=== PATIENT | male | born 1935 | race African-American/Black ===

== ENCOUNTER 2018-08-07 22:34 | Inpatient (IN) | payer OTHER ==
[~2018-08-07] VITALS: Ht 170.2 cm; Wt 61.3 kg
[~2018-08-07 22:34] MED LIST: ETOMIDATE 2MG/ML 10ML VIAL IV ONE; SODIUM CHLORIDE 0.9% 10ML VIAL ONE; VECURONIUM BROMIDE 10 MG/VIAL IV ONE
[2018-08-07] MEDS ORDERED: ONDANSETRON HCL 4MG/2ML INJ IV STA (23:19)
[2018-08-07] MEDS ORDERED: SODIUM CHLORIDE 0.9% 1,000 ML IV ONE (23:19)
[2018-08-07] MEDS ORDERED: SODIUM CHLORIDE 0.9% 1000ML BAG (SEPSIS BOLUS) IV ONE (23:30)
[2018-08-07] MEDS ORDERED: VANCOMYCIN 1 G PREMIX 200 ML IV ONE (23:30)
[2018-08-07] MEDS ORDERED: PIPERACILLIN/TAZ 3.375G PREMIX 50 ML IV ONE (23:30)
[2018-08-07] MEDS ORDERED: NALOXONE HCL 1 MG/ML 2ML VIAL ONE (23:40)
[2018-08-07] MEDS ORDERED: ETOMIDATE 2MG/ML 10ML VIAL IV ONE (23:45)
[2018-08-07] MEDS ORDERED: VECURONIUM BROMIDE 10 MG/VIAL IV ONE (23:45)
[2018-08-07] MEDS ORDERED: PROPOFOL 10MG/ML 100ML 100 ML IV ONE (23:45)
[2018-08-08] VITALS (35 sets, daily range): BP systolic 84–127; BP diastolic 46–80
[2018-08-08] MEDS ORDERED: NOREPINEPHRINE 4 MG in DEXT 5% WATER 250 ML IV STA (00:08)
[2018-08-08 00:36] LABS: BG BASE EXCESS 3.1 mmol/L (-2.0-2.0); BG CARBOXYHEMOGLOBIN 1.7 % (0.5-1.5); BG DEOXYHEMOGLOBIN 1.1 % (0.0-5.0); BG FRACTION INSPIRED OXYGEN 50; BG HCO3 ACT 30.7 mmol/L (22.0-26.0); BG METHEMOGLOBIN 0.4 % (0.0-1.5); BG OXYGEN SATURATION 98.9 % (92.0-98.5); BG OXYHEMOGLOBIN 96.8 % (94.0-97.0); BG PCO2 59.5 mmHg (35.0-45.0); BG PH 7.331 (7.350-7.450); BG PO2 156.7 mmHg (75.0-100.0); BG SAMPLE SITE RIGHT RADIAL; BG TIDAL VOLUME(mL) 450 mL; BG TOTAL HEMOGLOBIN 15.2 g/dL (12.0-18.0); BG VENT MODE VENT - A/C; BG VENT RATE 14 set
[2018-08-08 00:56] LABS: HEMATOCRIT. 42.8 % (42.0-52.0); HEMOGLOBIN. 14.4 g/dL (14.0-18.0); MEAN CORPUSCULAR HEMOGLOBIN 30.2 pg (28.0-32.0); MEAN CORPUSCULAR VOLUME 89.8 fL (80.0-94.0); MEAN PLATELET VOLUME 9.4 fl (7.4-10.4); PLATELET 203 x1000/uL (130-400); RED BLOOD CELL COUNT 4.76 mill/uL (4.7-6.1); RED CELL DISTRIBUTION WIDTH 15.6 % (11.6-14.6)
[2018-08-08 01:03] LABS: CHLORIDE 103 mEq/L (98-107)
[2018-08-08 01:06] LABS: ETHANOL BLOOD < 10 mg/dL; INR 1.5; PROTHROMBIN TIME 14.7 sec (9.1-11.1)
[2018-08-08 01:14] LABS: PLATELET ESTIMATE NORMAL
[2018-08-08 01:27] LABS: CLARITY URINE CLOUDY (CLEAR); COLOR URINE DARK YELLOW (YELLOW); KETONES URINE TRACE (NEGATIVE); LEUKOCYTE ESTERASE URINE NEGATIVE (NEGATIVE); NITRITE URINE NEGATIVE (NEGATIVE); OCCULT BLOOD URINE TRACE (NEGATIVE); PROTEIN URINE 2+ (NEGATIVE); SPECIFIC GRAVITY URINE 1.018 (1.005-1.030)
[2018-08-08] MEDS ORDERED: NOREPINEPHRINE 4MG/250ML PMX 250 ML IV PRN (01:30)
[2018-08-08 01:36] LABS: *AMPHETAMINES SCREEN URINE NEGATIVE (NEGATIVE); *BARBITURATES SCREEN URINE NEGATIVE (NEGATIVE); *BENZODIAZEPINES SCREEN URINE NEGATIVE (NEGATIVE); *COCAINE SCREEN URINE NEGATIVE (NEGATIVE)
[2018-08-08 01:38] LABS: CANNABINOID URINE SCREEN NEGATIVE (NEGATIVE); METHADONE URINE SCREEN NEGATIVE (NEGATIVE); OPIATES URINE SCREEN NEGATIVE (NEGATIVE); PHENCYCLIDINE URINE SCREEN NEGATIVE (NEGATIVE)
[2018-08-08] MEDS ORDERED: DIGOXIN 500MCG/2ML AMP IV ONE (05:00)
[2018-08-08] MEDS ORDERED: CLONIDINE 0.1MG TABLET PO PRN (07:45)
[2018-08-08] MEDS: SODIUM CHLORIDE 0.45% 1,000 ML IV SCH (07:45)
[2018-08-08] MEDS ORDERED: ENOXAPARIN 40MG/0.4ML SYR SUBCUT SCH (07:45)
[2018-08-08] MEDS ORDERED: ACETAMINOPHEN 650MG SUPP PR PRN (07:45)
[2018-08-08] MEDS ORDERED: ONDANSETRON HCL 4MG/2ML INJ IV PRN (07:45)
[2018-08-08] MEDS ORDERED: AMIODARONE HCL 150 MG in DEXT 5% WATER 100 ML IV SCH (08:00)
[2018-08-08] MEDS ORDERED: PANTOPRAZOLE SODIUM 40 MG/VIAL IV SCH (08:15)
[2018-08-08] MEDS ORDERED: FENTANYL CITRATE/PF 500 MCG in SODIUM CHLORIDE 0.9% 40 ML IV SCH (08:15)
[2018-08-08] MEDS ORDERED: ENOXAPARIN 60MG/0.6ML SYR SUBCUT NR (08:15)
[2018-08-08] MEDS ORDERED: DILTIAZEM HCL 125 MG in DEXT 5% WATER 100 ML IV SCH (08:15)
[2018-08-08] MEDS: FENTANYL CITRATE/PF 500 MCG in SODIUM CHLORIDE 0.9% 40 ML IV SCH ×2 (08:58→16:08)
[2018-08-08] MEDS: DILTIAZEM HCL 125 MG in DEXT 5% WATER 100 ML IV SCH ×2 (08:58→16:09)
[2018-08-08 09:33] LABS: CREATINE KINASE 372 IU/L (39-308)
[2018-08-08 12:30] LABS: FOLIC ACID (FOLATE) SERUM 17.6 ng/mL (>5.38)
[2018-08-08 12:41] LABS: HEPATITIS B SURFACE ANTIGEN NEGATIVE
[2018-08-08] MEDS ORDERED: PROPOFOL 10MG/ML 100ML 100 ML IV PRN (12:45)
[2018-08-08] MEDS ORDERED: IPRATROPIUM BROMIDE (0.02%) 0.5MG/2.5ML NEB HHN SCH (13:00)
[2018-08-08 13:11] LABS: HEPATITIS A AB IGM NEGATIVE (NEGATIVE)
[2018-08-08] MEDS ORDERED: PHENYLEPHRINE 40 MG in DEXT 5% WATER 246 ML IV PRN ×2 (13:15→21:45)
[2018-08-08 14:04] LABS: T4 FREE 1.4 ng/dL (0.76-1.46)
[2018-08-08] MEDS ORDERED: IPRATROPIUM/ALBUTEROL 0.5-3(2.5)MG/3ML NEB HHN SCH (16:00)
[2018-08-08] MEDS ORDERED: ENOXAPARIN 60MG/0.6ML SYR SUBCUT SCH (16:30)
[2018-08-08] MEDS: PIPERACILLIN/TAZ 3.375G PREMIX 50 ML IV SCH (17:30)
[2018-08-08] MEDS ORDERED: SODIUM CHLORIDE 0.9% 1,000 ML IV NR (18:35)
[2018-08-08] MEDS: IPRATROPIUM BROMIDE (0.02%) 0.5MG/2.5ML NEB HHN SCH (20:08)
[2018-08-08] MEDS: LORAZEPAM 2MG/ML CPJ IV PRN (22:34)
[2018-08-08] MEDS ORDERED: VANCOMYCIN 750 MG PREMIX 150 ML IV SCH (23:00)
[2018-08-09] VITALS (96 sets, daily range): BP systolic 83–146; BP diastolic 45–92
[2018-08-09] MEDS: IPRATROPIUM BROMIDE (0.02%) 0.5MG/2.5ML NEB HHN SCH ×6 (00:03→20:25)
[2018-08-09] MEDS: DILTIAZEM HCL 125 MG in DEXT 5% WATER 100 ML IV SCH ×2 (00:57→11:25)
[2018-08-09] MEDS: PIPERACILLIN/TAZ 3.375G PREMIX 50 ML IV SCH ×4 (00:57→23:41)
[2018-08-09] MEDS: SODIUM CHLORIDE 0.45% 1,000 ML IV SCH (01:44)
[2018-08-09 06:49] LABS: INR 1.4
[2018-08-09 06:54] LABS: PHOSPHORUS 3.2 mg/dL (2.5-4.9)
[2018-08-09 06:57] LABS: T4 FREE 1.55 ng/dL (0.76-1.46)
[2018-08-09 07:05] LABS: HEMATOCRIT. 46.2 % (42.0-52.0); HEMOGLOBIN. 14.3 g/dL (14.0-18.0); MEAN CORPUSCULAR HEMOGLOBIN 27.8 pg (28.0-32.0); MEAN CORPUSCULAR VOLUME 89.4 fL (80.0-94.0); MEAN PLATELET VOLUME 8.9 fl (7.4-10.4); PLATELET 123 x1000/uL (130-400); RED BLOOD CELL COUNT 5.17 mill/uL (4.7-6.1); RED CELL DISTRIBUTION WIDTH 15.4 % (11.6-14.6)
[2018-08-09 08:13] LABS: NUCLEATED RED BLOOD CELLS 1 /100 WBC
[2018-08-09 08:14] LABS: PLATELET ESTIMATE SLIGHTLY DECREASED
[2018-08-09 08:52] LABS: BG BASE EXCESS 0.5 mmol/L (-2.0-2.0); BG CARBOXYHEMOGLOBIN 1.1 % (0.5-1.5); BG DEOXYHEMOGLOBIN 14.1 % (0.0-5.0); BG FRACTION INSPIRED OXYGEN 50; BG HCO3 ACT 30.5 mmol/L (22.0-26.0); BG METHEMOGLOBIN 0.1 % (0.0-1.5); BG OXYGEN SATURATION 85.7 % (92.0-98.5); BG OXYHEMOGLOBIN 84.7 % (94.0-97.0); BG PCO2 75.8 mmHg (35.0-45.0); BG PH 7.223 (7.350-7.450); BG PO2 59.1 mmHg (75.0-100.0); BG PRESSURE SUPPORT 10; BG SAMPLE SITE RIGHT BRACHIAL; BG TOTAL HEMOGLOBIN 14.9 g/dL (12.0-18.0); BG VENT MODE VENT - CPAP
[2018-08-09] MEDS ORDERED: DIGOXIN 500MCG/2ML AMP IV NR (11:00)
[2018-08-09] MEDS: ENOXAPARIN 80MG/0.8ML SYR SUBCUT SCH (11:25)
[2018-08-09] MEDS: LORAZEPAM 2MG/ML CPJ IV PRN (11:47)
[2018-08-09] MEDS ORDERED: SIMV40TA5 PO (16:59)
[2018-08-09] MEDS ORDERED: HYDR12.529 PO (16:59)
[2018-08-09] MEDS ORDERED: BUDE6.9H INH (16:59)
[2018-08-09] MEDS ORDERED: ASPI-1160 PO (16:59)
[2018-08-09] MEDS ORDERED: NIFE60TA83 PO (16:59)
[2018-08-09] MEDS ORDERED: ATEN-42 PO (16:59)
[2018-08-09 19:07] LABS: ANTI-NUCLEAR ANTIBODIES DIRECT Negative (Negative)
[2018-08-09] MEDS: VANCOMYCIN 1 G PREMIX 200 ML IV SCH (22:20)
[2018-08-10] VITALS (70 sets, daily range): BP systolic 105–160; BP diastolic 57–81
[2018-08-10] MEDS: IPRATROPIUM BROMIDE (0.02%) 0.5MG/2.5ML NEB HHN SCH ×6 (00:20→20:41)
[2018-08-10 04:49] LABS: HEMATOCRIT. 43.7 % (42.0-52.0); HEMOGLOBIN. 13.7 g/dL (14.0-18.0); MEAN CORPUSCULAR HEMOGLOBIN 28.2 pg (28.0-32.0); MEAN CORPUSCULAR VOLUME 90.1 fL (80.0-94.0); MEAN PLATELET VOLUME 8.5 fl (7.4-10.4); PLATELET 113 x1000/uL (130-400); RED BLOOD CELL COUNT 4.85 mill/uL (4.7-6.1); RED CELL DISTRIBUTION WIDTH 15.6 % (11.6-14.6)
[2018-08-10 05:02] LABS: CHLORIDE 109 mEq/L (98-107)
[2018-08-10 05:14] LABS: PHOSPHORUS 2.3 mg/dL (2.5-4.9)
[2018-08-10] MEDS: PIPERACILLIN/TAZ 3.375G PREMIX 50 ML IV SCH ×2 (05:16→12:01)
[2018-08-10 05:20] LABS: COMPLEMENT C3 79 mg/dL (82-167)
[2018-08-10 07:37] LABS: PLATELET ESTIMATE DECREASED
[2018-08-10 08:19] LABS: HIV SCREEN 4G Non Reactive (Non Reactive)
[2018-08-10] MEDS: LANSOPRAZOLE 30MG DR CAPSULE GT SCH (08:59)
[2018-08-10] MEDS: SODIUM CHLORIDE 0.45% 1,000 ML IV SCH (09:00)
[2018-08-10] MEDS ORDERED: PANTOPRAZOLE 40MG DR TABLET PO ONE (09:00)
[2018-08-10 09:24] LABS: BG CARBOXYHEMOGLOBIN 1.4 % (0.5-1.5); BG DEOXYHEMOGLOBIN 5.6 % (0.0-5.0); BG HCO3 ACT 29.2 mmol/L (22.0-26.0); BG METHEMOGLOBIN 0.2 % (0.0-1.5); BG OXYGEN SATURATION 94.3 % (92.0-98.5); BG OXYHEMOGLOBIN 92.8 % (94.0-97.0); BG PCO2 50.9 mmHg (35.0-45.0); BG PH 7.376 (7.350-7.450); BG PO2 70.2 mmHg (75.0-100.0); BG SAMPLE SITE RIGHT BRACHIAL; BG TIDAL VOLUME(mL) 500 mL; BG TOTAL HEMOGLOBIN 14.3 g/dL (12.0-18.0); BG VENT MODE VENT - A/C; BG VENT RATE 16 set
[2018-08-10] MEDS ORDERED: DILTIAZEM HCL 125 MG in DEXT 5% WATER 100 ML IV PRN (10:00)
[2018-08-10] MEDS: ENOXAPARIN 80MG/0.8ML SYR SUBCUT SCH (11:04)
[2018-08-10] MEDS ORDERED: POTASSIUM PHOS,M-BASIC-D-BASIC 20 MMOL in DEXT 5% WATER 243.3333 ML IV NR (11:30)
[2018-08-10] MEDS: DILTIAZEM HCL 60MG TABLET PO SCH ×2 (13:41→21:55)
[2018-08-10] MEDS ORDERED: FUROSEMIDE 40MG/4ML VIAL IVP NR (15:15)
[2018-08-10] MEDS: PIPERACILLIN/TAZ 2.25G PREMIX 50 ML IV SCH (17:24)
[2018-08-10] MEDS: VANCOMYCIN 1 G PREMIX 200 ML IV SCH (20:23)
[2018-08-10] MEDS: LORAZEPAM 2MG/ML CPJ IV PRN (20:24)
[2018-08-11] VITALS (42 sets, daily range): BP systolic 102–142; BP diastolic 50–117
[2018-08-11] MEDS: PIPERACILLIN/TAZ 2.25G PREMIX 50 ML IV SCH ×5 (00:45→23:17)
[2018-08-11] MEDS: IPRATROPIUM BROMIDE (0.02%) 0.5MG/2.5ML NEB HHN SCH ×6 (00:49→20:17)
[2018-08-11] MEDS: DILTIAZEM HCL 60MG TABLET PO SCH ×3 (05:05→21:17)
[2018-08-11] MEDS: LANSOPRAZOLE 30MG DR CAPSULE GT SCH (05:05)
[2018-08-11 05:32] LABS: HEMATOCRIT. 47.5 % (42.0-52.0); HEMOGLOBIN. 14.9 g/dL (14.0-18.0); MEAN CORPUSCULAR HEMOGLOBIN 28.2 pg (28.0-32.0); MEAN CORPUSCULAR VOLUME 89.8 fL (80.0-94.0); MEAN PLATELET VOLUME 9.2 fl (7.4-10.4); PLATELET 114 x1000/uL (130-400); RED BLOOD CELL COUNT 5.29 mill/uL (4.7-6.1); RED CELL DISTRIBUTION WIDTH 15.3 % (11.6-14.6)
[2018-08-11 08:23] LABS: BG BASE EXCESS 10.5 mmol/L (-2.0-2.0); BG CARBOXYHEMOGLOBIN 1.1 % (0.5-1.5); BG DEOXYHEMOGLOBIN 3.6 % (0.0-5.0); BG FRACTION INSPIRED OXYGEN 70; BG HCO3 ACT 37.2 mmol/L (22.0-26.0); BG METHEMOGLOBIN 0.5 % (0.0-1.5); BG OXYGEN SATURATION 96.3 % (92.0-98.5); BG OXYHEMOGLOBIN 94.8 % (94.0-97.0); BG PCO2 57.4 mmHg (35.0-45.0); BG PH 7.429 (7.350-7.450); BG PO2 83.8 mmHg (75.0-100.0); BG SAMPLE SITE RIGHT RADIAL; BG TIDAL VOLUME(mL) 500 mL; BG TOTAL HEMOGLOBIN 14.6 g/dL (12.0-18.0); BG VENT MODE VENT - A/C; BG VENT RATE 16 set
[2018-08-11 10:23] LABS: PLATELET ESTIMATE SLIGHTLY DECREASED
[2018-08-11] MEDS: ENOXAPARIN 80MG/0.8ML SYR SUBCUT SCH (11:45)
[2018-08-11] MEDS: LORAZEPAM 2MG/ML CPJ IV PRN ×3 (12:34→22:52)
[2018-08-11] MEDS ORDERED: DEXTROSE 50% WATER 50ML SYRINGE IV PRN (13:00)
[2018-08-11] MEDS: BLOOD SUGAR DIAGNOSTIC STRIP TEST SCH ×3 (13:00→23:15)
[2018-08-11] MEDS: INSULIN LISPRO 100 UNITS/ML SUBCUT SCH ×3 (13:00→23:17)
[2018-08-11] MEDS: METHYLPREDNISOLONE SOD SUCC 40 MG/ML VIAL IV SCH (18:26)
[2018-08-11] MEDS: VANCOMYCIN 1 G PREMIX 200 ML IV SCH (20:42)
[2018-08-11] MEDS ORDERED: ACETAMINOPHEN 325MG TABLET PO PRN (21:00)
[2018-08-12] VITALS (71 sets, daily range): BP systolic 110–145; BP diastolic 53–102
[2018-08-12] MEDS: IPRATROPIUM BROMIDE (0.02%) 0.5MG/2.5ML NEB HHN SCH ×7 (00:32→23:44)
[2018-08-12] MEDS: METHYLPREDNISOLONE SOD SUCC 40 MG/ML VIAL IV SCH ×3 (02:39→18:24)
[2018-08-12 05:21] LABS: HEMATOCRIT. 42.9 % (42.0-52.0); HEMOGLOBIN. 13.4 g/dL (14.0-18.0); MEAN CORPUSCULAR VOLUME 89.6 fL (80.0-94.0); PLATELET 109 x1000/uL (130-400); RED BLOOD CELL COUNT 4.79 mill/uL (4.7-6.1)
[2018-08-12 05:23] LABS: CHLORIDE 106 mEq/L (98-107)
[2018-08-12] MEDS: BLOOD SUGAR DIAGNOSTIC STRIP TEST SCH ×3 (05:43→23:38)
[2018-08-12] MEDS: DILTIAZEM HCL 60MG TABLET PO SCH ×3 (05:44→21:14)
[2018-08-12] MEDS: LANSOPRAZOLE 30MG DR CAPSULE GT SCH (05:44)
[2018-08-12] MEDS: INSULIN LISPRO 100 UNITS/ML SUBCUT SCH ×3 (05:44→23:39)
[2018-08-12] MEDS: PIPERACILLIN/TAZ 2.25G PREMIX 50 ML IV SCH ×4 (05:45→23:38)
[2018-08-12] MEDS: LORAZEPAM 2MG/ML CPJ IV PRN ×3 (05:46→19:36)
[2018-08-12 08:22] LABS: BG BASE EXCESS 9.8 mmol/L (-2.0-2.0); BG DEOXYHEMOGLOBIN 4.5 % (0.0-5.0); BG FRACTION INSPIRED OXYGEN 70; BG HCO3 ACT 36.2 mmol/L (22.0-26.0); BG METHEMOGLOBIN 0.1 % (0.0-1.5); BG OXYGEN SATURATION 95.4 % (92.0-98.5); BG OXYHEMOGLOBIN 94.4 % (94.0-97.0); BG PCO2 55.6 mmHg (35.0-45.0); BG PH 7.432 (7.350-7.450); BG PO2 78.8 mmHg (75.0-100.0); BG SAMPLE SITE RIGHT RADIAL; BG TIDAL VOLUME(mL) 500 mL; BG TOTAL HEMOGLOBIN 14.5 g/dL (12.0-18.0); BG VENT MODE VENT - A/C; BG VENT RATE 16 set
[2018-08-12] MEDS: ENOXAPARIN 80MG/0.8ML SYR SUBCUT SCH (11:31)
[2018-08-12] MEDS ORDERED: DEXTROSE 50% WATER 50ML SYRINGE IV PRN (14:30)
[2018-08-12] MEDS: VANCOMYCIN 1 G PREMIX 200 ML IV SCH (16:00)
[2018-08-12 16:01] LABS: PLATELET ESTIMATE SLIGHTLY DECREASED
[2018-08-12] MEDS ORDERED: BLOOD SUGAR DIAGNOSTIC STRIP TEST SCH (16:30)
[2018-08-12] MEDS ORDERED: INSULIN LISPRO 100 UNITS/ML SUBCUT SCH (17:00)
[2018-08-12] MEDS: SODIUM CHLORIDE 0.45% 1,000 ML IV SCH (18:24)
[2018-08-12] MEDS ORDERED: INSULIN GLARGINE UD 100 UNITS/ML SYR SUBCUT SCH (22:00)
[2018-08-12] MEDS ORDERED: IOHEXOL-350 100 ML BOTTLE ONE (22:59)
[2018-08-13] VITALS (48 sets, daily range): BP systolic 109–155; BP diastolic 67–86
[2018-08-13] MEDS ORDERED: DEXTROSE 50% WATER 50ML SYRINGE IV PRN
[2018-08-13] MEDS: METHYLPREDNISOLONE SOD SUCC 40 MG/ML VIAL IV SCH ×3 (01:36→18:34)
[2018-08-13] MEDS: IPRATROPIUM BROMIDE (0.02%) 0.5MG/2.5ML NEB HHN SCH ×5 (04:18→20:25)
[2018-08-13] MEDS: BLOOD SUGAR DIAGNOSTIC STRIP TEST SCH ×4 (05:39→23:10)
[2018-08-13] MEDS: SODIUM CHLORIDE 0.45% 1,000 ML IV SCH (05:39)
[2018-08-13] MEDS: DILTIAZEM HCL 60MG TABLET PO SCH ×3 (05:42→22:06)
[2018-08-13] MEDS: LANSOPRAZOLE 30MG DR CAPSULE GT SCH (05:42)
[2018-08-13] MEDS: PIPERACILLIN/TAZ 2.25G PREMIX 50 ML IV SCH ×4 (05:42→23:07)
[2018-08-13 05:49] LABS: HEMATOCRIT. 43.5 % (42.0-52.0); HEMOGLOBIN. 13.7 g/dL (14.0-18.0); MEAN CORPUSCULAR HEMOGLOBIN 28.1 pg (28.0-32.0); MEAN CORPUSCULAR VOLUME 89.1 fL (80.0-94.0); MEAN PLATELET VOLUME 8.9 fl (7.4-10.4); PLATELET 114 x1000/uL (130-400); RED BLOOD CELL COUNT 4.88 mill/uL (4.7-6.1); RED CELL DISTRIBUTION WIDTH 14.9 % (11.6-14.6)
[2018-08-13] MEDS: INSULIN LISPRO 100 UNITS/ML SUBCUT SCH ×4 (06:03→23:12)
[2018-08-13] MEDS: LORAZEPAM 2MG/ML CPJ IV PRN ×3 (06:03→14:24)
[2018-08-13 06:15] LABS: CHLORIDE 105 mEq/L (98-107)
[2018-08-13 06:24] LABS: PHOSPHORUS 2.2 mg/dL (2.5-4.9)
[2018-08-13 07:51] LABS: PLATELET ESTIMATE DECREASED
[2018-08-13 08:25] LABS: BG BASE EXCESS 6.4 mmol/L (-2.0-2.0); BG CARBOXYHEMOGLOBIN 1.2 % (0.5-1.5); BG DEOXYHEMOGLOBIN 3.7 % (0.0-5.0); BG FRACTION INSPIRED OXYGEN 70; BG HCO3 ACT 32.9 mmol/L (22.0-26.0); BG METHEMOGLOBIN 0.2 % (0.0-1.5); BG OXYGEN SATURATION 96.2 % (92.0-98.5); BG OXYHEMOGLOBIN 94.9 % (94.0-97.0); BG PCO2 55.4 mmHg (35.0-45.0); BG PH 7.392 (7.350-7.450); BG SAMPLE SITE RIGHT RADIAL; BG TIDAL VOLUME(mL) 500 mL; BG TOTAL HEMOGLOBIN 13.9 g/dL (12.0-18.0); BG VENT MODE VENT - A/C; BG VENT RATE 16 set
[2018-08-13] MEDS: VANCOMYCIN 1 G PREMIX 200 ML IV SCH (10:29)
[2018-08-13] MEDS ORDERED: POTASSIUM-SODIUM PHOSPHATE POWDER PACKET PO SCH (10:45)
[2018-08-13] MEDS: ENOXAPARIN 80MG/0.8ML SYR SUBCUT SCH ×2 (11:00→16:38)
[2018-08-13] MEDS ORDERED: FUROSEMIDE 100MG/10ML VIAL IVP NR (16:30)
[2018-08-14] VITALS (48 sets, daily range): BP systolic 107–154; BP diastolic 61–83
[2018-08-14] MEDS: IPRATROPIUM BROMIDE (0.02%) 0.5MG/2.5ML NEB HHN SCH ×6 (00:31→21:18)
[2018-08-14 05:05] LABS: HEMATOCRIT. 43.3 % (42.0-52.0); HEMOGLOBIN. 13.5 g/dL (14.0-18.0); MEAN CORPUSCULAR HEMOGLOBIN 27.8 pg (28.0-32.0); MEAN CORPUSCULAR VOLUME 88.8 fL (80.0-94.0); MEAN PLATELET VOLUME 9.2 fl (7.4-10.4); PLATELET 128 x1000/uL (130-400); RED BLOOD CELL COUNT 4.87 mill/uL (4.7-6.1); RED CELL DISTRIBUTION WIDTH 14.8 % (11.6-14.6)
[2018-08-14 05:33] LABS: CHLORIDE 101 mEq/L (98-107)
[2018-08-14 05:38] LABS: PHOSPHORUS 3.2 mg/dL (2.5-4.9)
[2018-08-14] MEDS: BLOOD SUGAR DIAGNOSTIC STRIP TEST SCH ×4 (06:00→23:17)
[2018-08-14] MEDS: METHYLPREDNISOLONE SOD SUCC 40 MG/ML VIAL IV SCH ×2 (06:03→17:31)
[2018-08-14] MEDS: DILTIAZEM HCL 60MG TABLET PO SCH ×3 (06:03→22:10)
[2018-08-14] MEDS: LANSOPRAZOLE 30MG DR CAPSULE GT SCH (06:03)
[2018-08-14] MEDS: PIPERACILLIN/TAZ 2.25G PREMIX 50 ML IV SCH ×2 (06:03→13:08)
[2018-08-14] MEDS: INSULIN LISPRO 100 UNITS/ML SUBCUT SCH ×4 (06:04→23:17)
[2018-08-14 07:29] LABS: BG BASE EXCESS 8.2 mmol/L (-2.0-2.0); BG CARBOXYHEMOGLOBIN 1.4 % (0.5-1.5); BG DEOXYHEMOGLOBIN 3.8 % (0.0-5.0); BG METHEMOGLOBIN 0.3 % (0.0-1.5); BG OXYGEN SATURATION 96.1 % (92.0-98.5); BG OXYHEMOGLOBIN 94.5 % (94.0-97.0); BG PCO2 57.5 mmHg (35.0-45.0); BG PH 7.402 (7.350-7.450); BG PO2 82.6 mmHg (75.0-100.0); BG SAMPLE SITE RIGHT BRACHIAL; BG TIDAL VOLUME(mL) 500 mL; BG TOTAL HEMOGLOBIN 14.4 g/dL (12.0-18.0); BG VENT MODE VENT - A/C; BG VENT RATE 16 set
[2018-08-14 07:46] LABS: PLATELET ESTIMATE SLIGHTLY DECREASED
[2018-08-14] MEDS ORDERED: ENOXAPARIN 40MG/0.4ML SYR SUBCUT SCH (09:00)
[2018-08-14] MEDS: LORAZEPAM 2MG/ML CPJ IV PRN ×2 (10:04→22:28)
[2018-08-14] MEDS ORDERED: FUROSEMIDE 100MG/10ML VIAL IVP NR (11:45)
[2018-08-14] MEDS ORDERED: APIXABAN 5 MG TABLET PO SCH (17:00)
[2018-08-14] MEDS: ENOXAPARIN 80MG/0.8ML SYR SUBCUT SCH (17:30)
[2018-08-14] MEDS: PIPERACILLIN/TAZ 3.375G PREMIX 50 ML IV SCH ×2 (17:34→23:19)
[2018-08-15] VITALS (54 sets, daily range): BP systolic 118–177; BP diastolic 65–103
[2018-08-15] MEDS: IPRATROPIUM BROMIDE (0.02%) 0.5MG/2.5ML NEB HHN SCH ×5 (01:01→20:29)
[2018-08-15 03:47] LABS: HEMATOCRIT. 44.4 % (42.0-52.0); HEMOGLOBIN. 14.2 g/dL (14.0-18.0); MEAN CORPUSCULAR HEMOGLOBIN 28.1 pg (28.0-32.0); MEAN CORPUSCULAR VOLUME 87.7 fL (80.0-94.0); MEAN PLATELET VOLUME 9.5 fl (7.4-10.4); PLATELET 143 x1000/uL (130-400); RED BLOOD CELL COUNT 5.06 mill/uL (4.7-6.1); RED CELL DISTRIBUTION WIDTH 14.6 % (11.6-14.6)
[2018-08-15 03:54] LABS: CHLORIDE 98 mEq/L (98-107)
[2018-08-15 03:59] LABS: PHOSPHORUS 3.3 mg/dL (2.5-4.9)
[2018-08-15] MEDS: LORAZEPAM 2MG/ML CPJ IV PRN ×3 (04:25→17:58)
[2018-08-15 04:55] LABS: PLATELET ESTIMATE NORMAL
[2018-08-15] MEDS: INSULIN LISPRO 100 UNITS/ML SUBCUT SCH ×3 (05:16→17:58)
[2018-08-15] MEDS: DILTIAZEM HCL 60MG TABLET PO SCH ×3 (05:16→22:00)
[2018-08-15] MEDS: LANSOPRAZOLE 30MG DR CAPSULE GT SCH (05:16)
[2018-08-15] MEDS: BLOOD SUGAR DIAGNOSTIC STRIP TEST SCH ×3 (05:16→17:58)
[2018-08-15] MEDS: METHYLPREDNISOLONE SOD SUCC 40 MG/ML VIAL IV SCH ×2 (05:16→17:58)
[2018-08-15] MEDS: PIPERACILLIN/TAZ 3.375G PREMIX 50 ML IV SCH ×3 (05:16→17:58)
[2018-08-15] MEDS ORDERED: DEXT 5% WATER 500 ML IV ONE (07:30)
[2018-08-15 08:11] LABS: BG BASE EXCESS 12.1 mmol/L (-2.0-2.0); BG CARBOXYHEMOGLOBIN 1.3 % (0.5-1.5); BG FRACTION INSPIRED OXYGEN 60; BG HCO3 ACT 38.8 mmol/L (22.0-26.0); BG METHEMOGLOBIN 0.2 % (0.0-1.5); BG OXYGEN SATURATION 95.9 % (92.0-98.5); BG OXYHEMOGLOBIN 94.5 % (94.0-97.0); BG PCO2 58.1 mmHg (35.0-45.0); BG PH 7.443 (7.350-7.450); BG SAMPLE SITE RIGHT RADIAL; BG TIDAL VOLUME(mL) 500 mL; BG TOTAL HEMOGLOBIN 14.7 g/dL (12.0-18.0); BG VENT MODE VENT - A/C; BG VENT RATE 16 set
[2018-08-15] MEDS: ENOXAPARIN 80MG/0.8ML SYR SUBCUT SCH ×2 (08:31→22:00)
[2018-08-15] MEDS ORDERED: FUROSEMIDE 40MG/4ML VIAL IVP NR (09:45)
[2018-08-15 10:42] LABS: CLARITY URINE CLEAR (CLEAR); COLOR URINE YELLOW (YELLOW); KETONES URINE NEGATIVE (NEGATIVE); LEUKOCYTE ESTERASE URINE NEGATIVE (NEGATIVE); NITRITE URINE NEGATIVE (NEGATIVE); OCCULT BLOOD URINE 1+ (NEGATIVE); PROTEIN URINE TRACE (NEGATIVE); SPECIFIC GRAVITY URINE 1.026 (1.005-1.030); UROBILINOGEN URINE 0.2 E.U./dL (0.2-1.0)
[2018-08-15] MEDS: POTASSIUM CHLORIDE 20MEQ/PACKET PO SCH (12:00)
[2018-08-16] VITALS (38 sets, daily range): BP systolic 118–164; BP diastolic 63–100
[2018-08-16] MEDS: IPRATROPIUM BROMIDE (0.02%) 0.5MG/2.5ML NEB HHN SCH ×6 (00:06→20:57)
[2018-08-16] MEDS: BLOOD SUGAR DIAGNOSTIC STRIP TEST SCH ×5 (00:30→22:57)
[2018-08-16] MEDS: INSULIN LISPRO 100 UNITS/ML SUBCUT SCH ×5 (06:00→22:58)
[2018-08-16 06:01] LABS: CHLORIDE 100 mEq/L (98-107)
[2018-08-16 06:03] LABS: HEMATOCRIT. 43.8 % (42.0-52.0); HEMOGLOBIN. 13.7 g/dL (14.0-18.0); MEAN CORPUSCULAR HEMOGLOBIN 27.6 pg (28.0-32.0); MEAN CORPUSCULAR VOLUME 88.1 fL (80.0-94.0); MEAN PLATELET VOLUME 9.5 fl (7.4-10.4); PLATELET 149 x1000/uL (130-400); RED BLOOD CELL COUNT 4.97 mill/uL (4.7-6.1); RED CELL DISTRIBUTION WIDTH 14.7 % (11.6-14.6)
[2018-08-16] MEDS: PIPERACILLIN/TAZ 3.375G PREMIX 50 ML IV SCH ×4 (06:54→18:21)
[2018-08-16] MEDS: METHYLPREDNISOLONE SOD SUCC 40 MG/ML VIAL IV SCH ×2 (06:54→18:21)
[2018-08-16] MEDS: DILTIAZEM HCL 60MG TABLET PO SCH ×3 (06:55→22:02)
[2018-08-16] MEDS: LANSOPRAZOLE 30MG DR CAPSULE GT SCH (07:16)
[2018-08-16 09:12] LABS: BG BASE EXCESS 10.8 mmol/L (-2.0-2.0); BG CARBOXYHEMOGLOBIN 1.2 % (0.5-1.5); BG FRACTION INSPIRED OXYGEN 50; BG HCO3 ACT 36.7 mmol/L (22.0-26.0); BG METHEMOGLOBIN 0.3 % (0.0-1.5); BG OXYGEN SATURATION 93.9 % (92.0-98.5); BG OXYHEMOGLOBIN 92.5 % (94.0-97.0); BG PCO2 52.6 mmHg (35.0-45.0); BG PH 7.461 (7.350-7.450); BG PO2 66.4 mmHg (75.0-100.0); BG SAMPLE SITE RIGHT BRACHIAL; BG TIDAL VOLUME(mL) 500 mL; BG TOTAL HEMOGLOBIN 15.1 g/dL (12.0-18.0); BG VENT MODE VENT - A/C; BG VENT RATE 16 set
[2018-08-16] MEDS: ENOXAPARIN 80MG/0.8ML SYR SUBCUT SCH ×2 (09:24→22:00)
[2018-08-16] MEDS: POTASSIUM CHLORIDE 20MEQ/PACKET PO SCH (09:24)
[2018-08-16 10:05] LABS: ATYPICAL LYMPHOCYTES 1; PLATELET ESTIMATE NORMAL
[2018-08-16] MEDS: LORAZEPAM 2MG/ML CPJ IV PRN (21:39)
[2018-08-17] VITALS (69 sets, daily range): BP systolic 115–192; BP diastolic 62–131
[2018-08-17] MEDS: IPRATROPIUM BROMIDE (0.02%) 0.5MG/2.5ML NEB HHN SCH ×6 (00:48→20:25)
[2018-08-17 05:33] LABS: HEMATOCRIT. 45.9 % (42.0-52.0); HEMOGLOBIN. 14.5 g/dL (14.0-18.0); MEAN CORPUSCULAR HEMOGLOBIN 27.9 pg (28.0-32.0); MEAN PLATELET VOLUME 9.5 fl (7.4-10.4); PLATELET 151 x1000/uL (130-400); RED BLOOD CELL COUNT 5.21 mill/uL (4.7-6.1); RED CELL DISTRIBUTION WIDTH 14.6 % (11.6-14.6)
[2018-08-17 05:38] LABS: CHLORIDE 102 mEq/L (98-107)
[2018-08-17] MEDS: INSULIN LISPRO 100 UNITS/ML SUBCUT SCH ×3 (06:00→17:32)
[2018-08-17] MEDS: LANSOPRAZOLE 30MG DR CAPSULE GT SCH (06:52)
[2018-08-17] MEDS: DILTIAZEM HCL 60MG TABLET PO SCH (06:52)
[2018-08-17] MEDS: METHYLPREDNISOLONE SOD SUCC 40 MG/ML VIAL IV SCH (06:52)
[2018-08-17] MEDS: BLOOD SUGAR DIAGNOSTIC STRIP TEST SCH ×3 (06:59→17:32)
[2018-08-17 07:58] LABS: BG BASE EXCESS 10.3 mmol/L (-2.0-2.0); BG CARBOXYHEMOGLOBIN 1.4 % (0.5-1.5); BG DEOXYHEMOGLOBIN 4.6 % (0.0-5.0); BG FRACTION INSPIRED OXYGEN 40; BG HCO3 ACT 36.5 mmol/L (22.0-26.0); BG METHEMOGLOBIN 0.2 % (0.0-1.5); BG OXYGEN SATURATION 95.3 % (92.0-98.5); BG OXYHEMOGLOBIN 93.8 % (94.0-97.0); BG PCO2 53.9 mmHg (35.0-45.0); BG PH 7.448 (7.350-7.450); BG PO2 77.1 mmHg (75.0-100.0); BG SAMPLE SITE RIGHT BRACHIAL; BG TIDAL VOLUME(mL) 500 mL; BG TOTAL HEMOGLOBIN 15.4 g/dL (12.0-18.0); BG VENT MODE VENT - A/C; BG VENT RATE 12 set
[2018-08-17] MEDS: POTASSIUM CHLORIDE 20MEQ/PACKET PO SCH (09:12)
[2018-08-17] MEDS: ENOXAPARIN 80MG/0.8ML SYR SUBCUT SCH ×2 (09:13→20:57)
[2018-08-17 09:43] LABS: PLATELET ESTIMATE NORMAL
[2018-08-17] MEDS: LORAZEPAM 2MG/ML CPJ IV PRN ×2 (10:50→21:53)
[2018-08-17 14:22] LABS: BG BASE EXCESS 6.3 mmol/L (-2.0-2.0); BG CARBOXYHEMOGLOBIN 1.6 % (0.5-1.5); BG DEOXYHEMOGLOBIN 6.3 % (0.0-5.0); BG FRACTION INSPIRED OXYGEN 40; BG HCO3 ACT 32.2 mmol/L (22.0-26.0); BG METHEMOGLOBIN 0.2 % (0.0-1.5); BG OXYGEN SATURATION 93.6 % (92.0-98.5); BG OXYHEMOGLOBIN 91.9 % (94.0-97.0); BG PCO2 50.4 mmHg (35.0-45.0); BG PH 7.423 (7.350-7.450); BG PRESSURE SUPPORT 12; BG SAMPLE SITE RIGHT BRACHIAL; BG TIDAL VOLUME(mL) 500 mL; BG TOTAL HEMOGLOBIN 15.5 g/dL (12.0-18.0); BG VENT MODE VENT - SIMV; BG VENT RATE 6 set
[2018-08-17] MEDS ORDERED: HYDRALAZINE 20MG/ML VIAL IV PRN (16:00)
[2018-08-17] MEDS: LOSARTAN POTASSIUM 25 MG TABLET PO SCH (16:43)
[2018-08-17] MEDS: DILTIAZEM HCL 125 MG in DEXT 5% WATER 100 ML IV PRN (20:57)
[2018-08-17] MEDS ORDERED: AMLODIPINE 5MG TABLET PO SCH (21:00)
[2018-08-18] VITALS (48 sets, daily range): BP systolic 100–161; BP diastolic 64–111
[2018-08-18] MEDS: IPRATROPIUM BROMIDE (0.02%) 0.5MG/2.5ML NEB HHN SCH ×6 (00:06→21:02)
[2018-08-18] MEDS: BLOOD SUGAR DIAGNOSTIC STRIP TEST SCH ×4 (00:09→17:29)
[2018-08-18] MEDS: INSULIN LISPRO 100 UNITS/ML SUBCUT SCH ×4 (05:16→18:00)
[2018-08-18 05:31] LABS: HEMATOCRIT. 44.4 % (42.0-52.0); HEMOGLOBIN. 14.3 g/dL (14.0-18.0); MEAN CORPUSCULAR HEMOGLOBIN 28.2 pg (28.0-32.0); MEAN CORPUSCULAR VOLUME 87.6 fL (80.0-94.0); MEAN PLATELET VOLUME 9.1 fl (7.4-10.4); PLATELET 160 x1000/uL (130-400); RED BLOOD CELL COUNT 5.07 mill/uL (4.7-6.1); RED CELL DISTRIBUTION WIDTH 14.8 % (11.6-14.6)
[2018-08-18] MEDS: LANSOPRAZOLE 30MG DR CAPSULE GT SCH (05:31)
[2018-08-18 06:22] LABS: CHLORIDE 104 mEq/L (98-107)
[2018-08-18 06:35] LABS: PHOSPHORUS 2.8 mg/dL (2.5-4.9)
[2018-08-18 07:08] LABS: PLATELET ESTIMATE NORMAL
[2018-08-18 07:18] LABS: BG BASE EXCESS 11.2 mmol/L (-2.0-2.0); BG DEOXYHEMOGLOBIN 4.9 % (0.0-5.0); BG METHEMOGLOBIN 0.2 % (0.0-1.5); BG OXYHEMOGLOBIN 93.9 % (94.0-97.0); BG PCO2 51.7 mmHg (35.0-45.0); BG PH 7.472 (7.350-7.450); BG PO2 75.2 mmHg (75.0-100.0); BG SAMPLE SITE RIGHT RADIAL; BG TIDAL VOLUME(mL) 500 mL; BG TOTAL HEMOGLOBIN 15.1 g/dL (12.0-18.0); BG VENT MODE VENT - SIMV; BG VENT RATE 4 set
[2018-08-18] MEDS: POTASSIUM CHLORIDE 20MEQ/PACKET PO SCH (09:14)
[2018-08-18] MEDS: LOSARTAN POTASSIUM 25 MG TABLET PO SCH (09:14)
[2018-08-18] MEDS: METHYLPREDNISOLONE SOD SUCC 40 MG/ML VIAL IV SCH (09:15)
[2018-08-18] MEDS: ENOXAPARIN 80MG/0.8ML SYR SUBCUT SCH ×2 (09:15→21:24)
[2018-08-18] MEDS: DILTIAZEM HCL 125 MG in DEXT 5% WATER 100 ML IV PRN (14:49)
[2018-08-18] MEDS: LORAZEPAM 2MG/ML CPJ IV PRN ×2 (16:52→20:35)
[2018-08-19] VITALS (49 sets, daily range): BP systolic 99–149; BP diastolic 58–91
[2018-08-19] MEDS: LORAZEPAM 2MG/ML CPJ IV PRN ×4 (00:37→18:35)
[2018-08-19] MEDS: IPRATROPIUM BROMIDE (0.02%) 0.5MG/2.5ML NEB HHN SCH ×7 (00:46→23:55)
[2018-08-19] MEDS: BLOOD SUGAR DIAGNOSTIC STRIP TEST SCH ×4 (00:56→18:48)
[2018-08-19] MEDS: INSULIN LISPRO 100 UNITS/ML SUBCUT SCH ×4 (01:03→18:47)
[2018-08-19 05:24] LABS: HEMATOCRIT. 43.6 % (42.0-52.0); HEMOGLOBIN. 13.8 g/dL (14.0-18.0); MEAN CORPUSCULAR VOLUME 88.6 fL (80.0-94.0); MEAN PLATELET VOLUME 9.7 fl (7.4-10.4); PLATELET 159 x1000/uL (130-400); RED BLOOD CELL COUNT 4.92 mill/uL (4.7-6.1); RED CELL DISTRIBUTION WIDTH 14.6 % (11.6-14.6)
[2018-08-19 06:07] LABS: CHLORIDE 106 mEq/L (98-107)
[2018-08-19 06:15] LABS: PHOSPHORUS 3.2 mg/dL (2.5-4.9)
[2018-08-19] MEDS: LANSOPRAZOLE 30MG DR CAPSULE GT SCH (06:23)
[2018-08-19 08:14] LABS: BG CARBOXYHEMOGLOBIN 1.4 % (0.5-1.5); BG DEOXYHEMOGLOBIN 3.9 % (0.0-5.0); BG FRACTION INSPIRED OXYGEN 40; BG HCO3 ACT 31.8 mmol/L (22.0-26.0); BG METHEMOGLOBIN 0.4 % (0.0-1.5); BG OXYHEMOGLOBIN 94.3 % (94.0-97.0); BG PCO2 50.2 mmHg (35.0-45.0); BG PO2 87.5 mmHg (75.0-100.0); BG SAMPLE SITE RIGHT RADIAL; BG TIDAL VOLUME(mL) 500 mL; BG TOTAL HEMOGLOBIN 14.7 g/dL (12.0-18.0); BG VENT MODE VENT - A/C; BG VENT RATE 12 set
[2018-08-19 09:34] LABS: PLATELET ESTIMATE NORMAL
[2018-08-19] MEDS: POTASSIUM CHLORIDE 20MEQ/PACKET PO SCH (09:52)
[2018-08-19] MEDS: ENOXAPARIN 80MG/0.8ML SYR SUBCUT SCH ×2 (09:52→21:52)
[2018-08-19] MEDS: LOSARTAN POTASSIUM 25 MG TABLET PO SCH (09:52)
[2018-08-19] MEDS: METHYLPREDNISOLONE SOD SUCC 40 MG/ML VIAL IV SCH (09:53)
[2018-08-19] MEDS: IPRATROPIUM/ALBUTEROL 0.5-3(2.5)MG/3ML NEB HHN PRN (11:45)
[2018-08-19] MEDS ORDERED: DILTIAZEM HCL 125 MG in DEXT 5% WATER 100 ML IV PRN (18:52)
[2018-08-19] MEDS: DILTIAZEM HCL 125 MG in DEXT 5% WATER 100 ML IV PRN (21:52)
[2018-08-20] VITALS (67 sets, daily range): BP systolic 95–142; BP diastolic 52–98
[2018-08-20] MEDS: IPRATROPIUM BROMIDE (0.02%) 0.5MG/2.5ML NEB HHN SCH ×4 (03:27→16:58)
[2018-08-20 05:47] LABS: HEMATOCRIT. 42.5 % (42.0-52.0); HEMOGLOBIN. 13.3 g/dL (14.0-18.0); MEAN CORPUSCULAR HEMOGLOBIN 27.6 pg (28.0-32.0); MEAN CORPUSCULAR VOLUME 87.9 fL (80.0-94.0); MEAN PLATELET VOLUME 9.8 fl (7.4-10.4); PLATELET 156 x1000/uL (130-400); RED BLOOD CELL COUNT 4.83 mill/uL (4.7-6.1); RED CELL DISTRIBUTION WIDTH 14.5 % (11.6-14.6)
[2018-08-20 05:51] LABS: CHLORIDE 109 mEq/L (98-107)
[2018-08-20 05:57] LABS: PHOSPHORUS 2.7 mg/dL (2.5-4.9)
[2018-08-20] MEDS: INSULIN LISPRO 100 UNITS/ML SUBCUT SCH ×4 (06:00→17:46)
[2018-08-20] MEDS: BLOOD SUGAR DIAGNOSTIC STRIP TEST SCH ×4 (06:25→17:46)
[2018-08-20] MEDS: LANSOPRAZOLE 30MG DR CAPSULE GT SCH (06:56)
[2018-08-20 07:34] LABS: PLATELET ESTIMATE NORMAL
[2018-08-20] MEDS: LOSARTAN POTASSIUM 25 MG TABLET PO SCH (09:00)
[2018-08-20] MEDS: METHYLPREDNISOLONE SOD SUCC 40 MG/ML VIAL IV SCH (09:41)
[2018-08-20] MEDS: POTASSIUM CHLORIDE 20MEQ/PACKET PO SCH (09:41)
[2018-08-20] MEDS: ENOXAPARIN 80MG/0.8ML SYR SUBCUT SCH ×2 (09:42→21:47)
[2018-08-20] MEDS: LORAZEPAM 2MG/ML CPJ IV PRN (14:11)
[2018-08-20] MEDS ORDERED: METHYLPREDNISOLONE SOD SUCC 125 MG/2 ML VIAL IV NR (15:30)
[2018-08-20 16:29] LABS: BG BASE EXCESS 5.4 mmol/L (-2.0-2.0); BG DEOXYHEMOGLOBIN 5.4 % (0.0-5.0); BG FRACTION INSPIRED OXYGEN 40; BG HCO3 ACT 31.3 mmol/L (22.0-26.0); BG METHEMOGLOBIN 0.2 % (0.0-1.5); BG OXYGEN SATURATION 94.5 % (92.0-98.5); BG OXYHEMOGLOBIN 93.4 % (94.0-97.0); BG PCO2 50.1 mmHg (35.0-45.0); BG PH 7.413 (7.350-7.450); BG PO2 71.8 mmHg (75.0-100.0); BG PRESSURE SUPPORT 8; BG SAMPLE SITE RIGHT RADIAL; BG TOTAL HEMOGLOBIN 14.6 g/dL (12.0-18.0); BG VENT MODE VENT - CPAP
[2018-08-20 20:09] LABS: BG BASE EXCESS 6.6 mmol/L (-2.0-2.0); BG CARBOXYHEMOGLOBIN 0.7 % (0.5-1.5); BG DEOXYHEMOGLOBIN 0.4 % (0.0-5.0); BG FRACTION INSPIRED OXYGEN 100; BG HCO3 ACT 35.9 mmol/L (22.0-26.0); BG METHEMOGLOBIN 0.5 % (0.0-1.5); BG OXYGEN SATURATION 99.6 % (92.0-98.5); BG OXYHEMOGLOBIN 98.4 % (94.0-97.0); BG PCO2 73.7 mmHg (35.0-45.0); BG PH 7.306 (7.350-7.450); BG PO2 336.7 mmHg (75.0-100.0); BG SAMPLE SITE RIGHT RADIAL; BG VENT MODE MASK - NRB
[2018-08-20] MEDS: DILTIAZEM HCL 125 MG in DEXT 5% WATER 100 ML IV PRN (23:38)
[2018-08-21] VITALS (70 sets, daily range): BP systolic 120–157; BP diastolic 71–92
[2018-08-21] MEDS ORDERED: FUROSEMIDE 40MG/4ML VIAL IVP NR
[2018-08-21] MEDS: INSULIN LISPRO 100 UNITS/ML SUBCUT SCH ×4 (00:19→18:00)
[2018-08-21] MEDS: IPRATROPIUM BROMIDE (0.02%) 0.5MG/2.5ML NEB HHN SCH ×6 (00:28→21:30)
[2018-08-21 05:59] LABS: HEMATOCRIT. 44.9 % (42.0-52.0); HEMOGLOBIN. 14.3 g/dL (14.0-18.0); MEAN CORPUSCULAR VOLUME 88.1 fL (80.0-94.0); PLATELET 165 x1000/uL (130-400); RED CELL DISTRIBUTION WIDTH 14.4 % (11.6-14.6)
[2018-08-21] MEDS: LANSOPRAZOLE 30MG DR CAPSULE GT SCH (06:22)
[2018-08-21] MEDS: BLOOD SUGAR DIAGNOSTIC STRIP TEST SCH ×4 (06:22→18:00)
[2018-08-21 06:55] LABS: CHLORIDE 103 mEq/L (98-107)
[2018-08-21 07:38] LABS: BG BASE EXCESS 9.1 mmol/L (-2.0-2.0); BG BILEVEL POS AIRWAY PRESSURE 14/8; BG CARBOXYHEMOGLOBIN 0.8 % (0.5-1.5); BG DEOXYHEMOGLOBIN 2.1 % (0.0-5.0); BG FRACTION INSPIRED OXYGEN 50; BG HCO3 ACT 36.6 mmol/L (22.0-26.0); BG METHEMOGLOBIN 0.1 % (0.0-1.5); BG OXYGEN SATURATION 97.9 % (92.0-98.5); BG PCO2 62.3 mmHg (35.0-45.0); BG PH 7.387 (7.350-7.450); BG PO2 108.3 mmHg (75.0-100.0); BG SAMPLE SITE RIGHT RADIAL; BG TOTAL HEMOGLOBIN 14.6 g/dL (12.0-18.0); BG VENT MODE MASK - BIPAP
[2018-08-21 08:27] LABS: PLATELET ESTIMATE NORMAL
[2018-08-21] MEDS: LOSARTAN POTASSIUM 25 MG TABLET PO SCH (08:52)
[2018-08-21] MEDS: POTASSIUM CHLORIDE 20MEQ/PACKET PO SCH (08:53)
[2018-08-21] MEDS: METHYLPREDNISOLONE SOD SUCC 40 MG/ML VIAL IV SCH (08:53)
[2018-08-21] MEDS: ENOXAPARIN 80MG/0.8ML SYR SUBCUT SCH ×2 (08:53→20:30)
[2018-08-22] VITALS (42 sets, daily range): BP systolic 103–162; BP diastolic 53–94
[2018-08-22] MEDS: BLOOD SUGAR DIAGNOSTIC STRIP TEST SCH ×4 (00:09→17:28)
[2018-08-22] MEDS: IPRATROPIUM BROMIDE (0.02%) 0.5MG/2.5ML NEB HHN SCH ×6 (00:51→20:20)
[2018-08-22 05:52] LABS: HEMATOCRIT. 42.9 % (42.0-52.0); HEMOGLOBIN. 13.4 g/dL (14.0-18.0); MEAN CORPUSCULAR HEMOGLOBIN 27.6 pg (28.0-32.0); MEAN CORPUSCULAR VOLUME 88.2 fL (80.0-94.0); MEAN PLATELET VOLUME 10.1 fl (7.4-10.4); PLATELET 160 x1000/uL (130-400); RED BLOOD CELL COUNT 4.87 mill/uL (4.7-6.1); RED CELL DISTRIBUTION WIDTH 14.2 % (11.6-14.6)
[2018-08-22 05:57] LABS: CHLORIDE 103 mEq/L (98-107)
[2018-08-22] MEDS: INSULIN LISPRO 100 UNITS/ML SUBCUT SCH ×4 (06:00→18:39)
[2018-08-22] MEDS: LANSOPRAZOLE 30MG DR CAPSULE GT SCH (06:03)
[2018-08-22 07:54] LABS: PLATELET ESTIMATE NORMAL
[2018-08-22] MEDS: METHYLPREDNISOLONE SOD SUCC 40 MG/ML VIAL IV SCH (08:39)
[2018-08-22] MEDS: POTASSIUM CHLORIDE 20MEQ/PACKET PO SCH (08:39)
[2018-08-22] MEDS: ENOXAPARIN 80MG/0.8ML SYR SUBCUT SCH ×2 (08:40→20:16)
[2018-08-22] MEDS: LOSARTAN POTASSIUM 25 MG TABLET PO SCH (08:40)
[2018-08-22 09:05] LABS: BG BASE EXCESS 6.8 mmol/L (-2.0-2.0); BG CARBOXYHEMOGLOBIN 1.4 % (0.5-1.5); BG DEOXYHEMOGLOBIN 3.8 % (0.0-5.0); BG FRACTION INSPIRED OXYGEN 44; BG HCO3 ACT 33.6 mmol/L (22.0-26.0); BG METHEMOGLOBIN 0.4 % (0.0-1.5); BG OXYGEN SATURATION 96.1 % (92.0-98.5); BG OXYHEMOGLOBIN 94.4 % (94.0-97.0); BG PCO2 57.2 mmHg (35.0-45.0); BG PH 7.387 (7.350-7.450); BG PO2 79.8 mmHg (75.0-100.0); BG SAMPLE SITE RIGHT RADIAL; BG TOTAL HEMOGLOBIN 14.2 g/dL (12.0-18.0); BG VENT MODE NASAL CANNULA
[2018-08-22] MEDS: DILTIAZEM HCL 125 MG in DEXT 5% WATER 100 ML IV PRN (13:55)
[2018-08-23] VITALS (26 sets, daily range): BP systolic 103–146; BP diastolic 58–85
[2018-08-23] MEDS: BLOOD SUGAR DIAGNOSTIC STRIP TEST SCH ×2 (00:17→06:32)
[2018-08-23] MEDS: IPRATROPIUM BROMIDE (0.02%) 0.5MG/2.5ML NEB HHN SCH ×6 (00:18→21:49)
[2018-08-23] MEDS: INSULIN LISPRO 100 UNITS/ML SUBCUT SCH ×2 (06:00)
[2018-08-23 06:28] LABS: CHLORIDE 101 mEq/L (98-107); HEMATOCRIT. 44.6 % (42.0-52.0); HEMOGLOBIN. 14.2 g/dL (14.0-18.0); MEAN CORPUSCULAR VOLUME 88.1 fL (80.0-94.0); MEAN PLATELET VOLUME 10.1 fl (7.4-10.4); PLATELET 151 x1000/uL (130-400); RED BLOOD CELL COUNT 5.06 mill/uL (4.7-6.1); RED CELL DISTRIBUTION WIDTH 14.6 % (11.6-14.6)
[2018-08-23] MEDS: LANSOPRAZOLE 30MG DR CAPSULE GT SCH (06:35)
[2018-08-23 06:36] LABS: PHOSPHORUS 2.5 mg/dL (2.5-4.9)
[2018-08-23 07:33] LABS: PLATELET ESTIMATE NORMAL
[2018-08-23] MEDS: ENOXAPARIN 80MG/0.8ML SYR SUBCUT SCH ×2 (08:22→21:42)
[2018-08-23] MEDS: LOSARTAN POTASSIUM 25 MG TABLET PO SCH (08:22)
[2018-08-23] MEDS: METHYLPREDNISOLONE SOD SUCC 40 MG/ML VIAL IV SCH (08:22)
[2018-08-23] MEDS: DILTIAZEM HCL 125 MG in DEXT 5% WATER 100 ML IV PRN (11:14)
[2018-08-23] MEDS: DILTIAZEM HCL 30MG TABLET PO SCH ×2 (14:00→21:42)
[2018-08-24] VITALS (25 sets, daily range): BP systolic 48–136; BP diastolic 27–78
[2018-08-24] MEDS: IPRATROPIUM BROMIDE (0.02%) 0.5MG/2.5ML NEB HHN SCH ×6 (01:33→21:16)
[2018-08-24] MEDS: DILTIAZEM HCL 30MG TABLET PO SCH ×2 (05:21→14:11)
[2018-08-24 06:03] LABS: HEMATOCRIT. 44.3 % (42.0-52.0); HEMOGLOBIN. 13.9 g/dL (14.0-18.0); MEAN CORPUSCULAR HEMOGLOBIN 27.6 pg (28.0-32.0); MEAN CORPUSCULAR VOLUME 87.9 fL (80.0-94.0); MEAN PLATELET VOLUME 10.6 fl (7.4-10.4); PLATELET 144 x1000/uL (130-400); RED BLOOD CELL COUNT 5.05 mill/uL (4.7-6.1); RED CELL DISTRIBUTION WIDTH 14.1 % (11.6-14.6)
[2018-08-24 06:22] LABS: CHLORIDE 101 mEq/L (98-107)
[2018-08-24 07:53] LABS: PLATELET ESTIMATE NORMAL
[2018-08-24 08:21] LABS: BG BASE EXCESS 6.8 mmol/L (-2.0-2.0); BG CARBOXYHEMOGLOBIN 1.5 % (0.5-1.5); BG DEOXYHEMOGLOBIN 4.7 % (0.0-5.0); BG FRACTION INSPIRED OXYGEN 32; BG HCO3 ACT 33.5 mmol/L (22.0-26.0); BG METHEMOGLOBIN 0.3 % (0.0-1.5); BG OXYGEN SATURATION 95.2 % (92.0-98.5); BG OXYHEMOGLOBIN 93.5 % (94.0-97.0); BG PCO2 56.4 mmHg (35.0-45.0); BG PH 7.391 (7.350-7.450); BG PO2 75.9 mmHg (75.0-100.0); BG SAMPLE SITE RIGHT RADIAL; BG TOTAL HEMOGLOBIN 13.9 g/dL (12.0-18.0); BG VENT MODE NASAL CANNULA
[2018-08-24] MEDS: METHYLPREDNISOLONE SOD SUCC 40 MG/ML VIAL IV SCH (09:50)
[2018-08-24] MEDS: LOSARTAN POTASSIUM 25 MG TABLET PO SCH (09:50)
[2018-08-24] MEDS: ENOXAPARIN 80MG/0.8ML SYR SUBCUT SCH ×2 (09:51→21:19)
[2018-08-24] MEDS: LANSOPRAZOLE 30MG DR CAPSULE GT SCH (09:54)
[2018-08-24] MEDS ORDERED: DIGOXIN 500MCG/2ML AMP IV NR (14:45)
[2018-08-24] MEDS: DILTIAZEM HCL 60MG TABLET PO SCH (19:47)
[2018-08-24] MEDS: DILTIAZEM HCL 125 MG in DEXT 5% WATER 100 ML IV PRN (20:03)
[2018-08-25] VITALS (41 sets, daily range): BP systolic 93–145; BP diastolic 54–80
[2018-08-25] MEDS: DILTIAZEM HCL 60MG TABLET PO SCH ×4 (00:51→18:27)
[2018-08-25] MEDS: IPRATROPIUM BROMIDE (0.02%) 0.5MG/2.5ML NEB HHN SCH ×6 (01:06→20:41)
[2018-08-25] MEDS: DILTIAZEM HCL 125 MG in DEXT 5% WATER 100 ML IV PRN ×2 (02:58→12:18)
[2018-08-25 06:28] LABS: HEMOGLOBIN 14.2 g/dL (14.0-18.0); MEAN CORPUSCULAR HEMOGLOBIN 27.4 pg (28.0-32.0); MEAN CORPUSCULAR VOLUME 86.9 fL (80.0-94.0); PLATELET 166 x1000/uL (130-400); RED BLOOD CELL COUNT 5.18 mill/uL (4.7-6.1); RED CELL DISTRIBUTION WIDTH 14.1 % (11.6-14.6)
[2018-08-25 06:51] LABS: CHLORIDE 101 mEq/L (98-107)
[2018-08-25] MEDS ORDERED: LORAZEPAM 2MG/ML CPJ IV NR (09:45)
[2018-08-25] MEDS: ESMOLOL 2500MG PREMIX 250 ML IV PRN ×2 (10:09→20:19)
[2018-08-25] MEDS: ENOXAPARIN 80MG/0.8ML SYR SUBCUT SCH (12:18)
[2018-08-25] MEDS: METHYLPREDNISOLONE SOD SUCC 40 MG/ML VIAL IV SCH (12:18)
[2018-08-25] MEDS: LOSARTAN POTASSIUM 25 MG TABLET PO SCH (12:19)
[2018-08-25 16:14] LABS: BG BASE EXCESS 3.1 mmol/L (-2.0-2.0); BG CARBOXYHEMOGLOBIN 0.9 % (0.5-1.5); BG DEOXYHEMOGLOBIN 6.5 % (0.0-5.0); BG FRACTION INSPIRED OXYGEN 50; BG HCO3 ACT 28.1 mmol/L (22.0-26.0); BG METHEMOGLOBIN 0.2 % (0.0-1.5); BG OXYGEN SATURATION 93.4 % (92.0-98.5); BG OXYHEMOGLOBIN 92.4 % (94.0-97.0); BG PCO2 44.8 mmHg (35.0-45.0); BG PH 7.416 (7.350-7.450); BG PO2 64.5 mmHg (75.0-100.0); BG SAMPLE SITE RIGHT BRACHIAL; BG TOTAL HEMOGLOBIN 13.3 g/dL (12.0-18.0); BG VENT MODE MASK - VENTI
[2018-08-25 17:22] LABS: HEMATOCRIT 39.7 % (42.0-52.0); HEMOGLOBIN 12.5 g/dL (14.0-18.0)
[2018-08-26] VITALS (65 sets, daily range): BP systolic 82–135; BP diastolic 44–76
[2018-08-26] MEDS: IPRATROPIUM BROMIDE (0.02%) 0.5MG/2.5ML NEB HHN SCH ×6 (00:58→20:05)
[2018-08-26] MEDS: DILTIAZEM HCL 60MG TABLET PO SCH ×4 (03:02→18:44)
[2018-08-26 04:58] LABS: HEMATOCRIT. 38.8 % (42.0-52.0); HEMOGLOBIN. 12.2 g/dL (14.0-18.0); MEAN CORPUSCULAR HEMOGLOBIN 27.3 pg (28.0-32.0); PLATELET 136 x1000/uL (130-400); RED BLOOD CELL COUNT 4.46 mill/uL (4.7-6.1); RED CELL DISTRIBUTION WIDTH 13.7 % (11.6-14.6)
[2018-08-26 05:19] LABS: CHLORIDE 102 mEq/L (98-107)
[2018-08-26 05:27] LABS: PHOSPHORUS 2.6 mg/dL (2.5-4.9)
[2018-08-26] MEDS: DILTIAZEM HCL 125 MG in DEXT 5% WATER 100 ML IV PRN (06:13)
[2018-08-26 07:34] LABS: PLATELET ESTIMATE NORMAL
[2018-08-26] MEDS: LANSOPRAZOLE 30MG DR CAPSULE GT SCH ×2 (07:50→13:20)
[2018-08-26 08:56] LABS: BG BASE EXCESS 6.2 mmol/L (-2.0-2.0); BG CARBOXYHEMOGLOBIN 0.6 % (0.5-1.5); BG DEOXYHEMOGLOBIN 2.8 % (0.0-5.0); BG FRACTION INSPIRED OXYGEN 50; BG METHEMOGLOBIN 0.2 % (0.0-1.5); BG OXYGEN SATURATION 97.2 % (92.0-98.5); BG OXYHEMOGLOBIN 96.4 % (94.0-97.0); BG PH 7.447 (7.350-7.450); BG SAMPLE SITE RIGHT BRACHIAL; BG TOTAL HEMOGLOBIN 11.7 g/dL (12.0-18.0); BG VENT MODE MASK - VENTI
[2018-08-26] MEDS: ESMOLOL 2500MG PREMIX 250 ML IV PRN ×2 (09:22→21:22)
[2018-08-26] MEDS ORDERED: LIDOCAINE HCL 1% 20ML VIAL (Pyxis) INJ ONE (09:45)
[2018-08-26] MEDS: LOSARTAN POTASSIUM 25 MG TABLET PO SCH (09:46)
[2018-08-26] MEDS: PIPERACILLIN/TAZ 3.375G PREMIX 50 ML IV SCH ×2 (13:19→18:44)
[2018-08-26] MEDS: VANCOMYCIN 1250MG in DEXTROSE 5% WATER 250ML IV SCH (16:31)
[2018-08-27] VITALS (88 sets, daily range): BP systolic 64–159; BP diastolic 29–106
[2018-08-27] MEDS: PIPERACILLIN/TAZ 3.375G PREMIX 50 ML IV SCH ×4 (00:24→18:44)
[2018-08-27] MEDS: IPRATROPIUM BROMIDE (0.02%) 0.5MG/2.5ML NEB HHN SCH ×6 (00:51→20:57)
[2018-08-27 04:45] LABS: HEMATOCRIT. 32.7 % (42.0-52.0); HEMOGLOBIN. 10.3 g/dL (14.0-18.0); MEAN CORPUSCULAR HEMOGLOBIN 27.5 pg (28.0-32.0); MEAN CORPUSCULAR VOLUME 87.2 fL (80.0-94.0); MEAN PLATELET VOLUME 9.9 fl (7.4-10.4); PLATELET 110 x1000/uL (130-400); RED BLOOD CELL COUNT 3.75 mill/uL (4.7-6.1); RED CELL DISTRIBUTION WIDTH 14.4 % (11.6-14.6)
[2018-08-27 04:52] LABS: CHLORIDE 99 mEq/L (98-107)
[2018-08-27] MEDS: IPRATROPIUM/ALBUTEROL 0.5-3(2.5)MG/3ML NEB HHN PRN (05:04)
[2018-08-27 05:13] LABS: PHOSPHORUS 2.5 mg/dL (2.5-4.9)
[2018-08-27] MEDS: DILTIAZEM HCL 60MG TABLET PO SCH ×4 (05:20→18:00)
[2018-08-27 05:24] LABS: CLARITY URINE CLOUDY (CLEAR); COLOR URINE YELLOW (YELLOW); KETONES URINE NEGATIVE (NEGATIVE); LEUKOCYTE ESTERASE URINE 3+ (NEGATIVE); NITRITE URINE POSITIVE (NEGATIVE); OCCULT BLOOD URINE 2+ (NEGATIVE); PROTEIN URINE 1+ (NEGATIVE); SPECIFIC GRAVITY URINE 1.036 (1.005-1.030); UROBILINOGEN URINE 0.2 E.U./dL (0.2-1.0)
[2018-08-27] MEDS: VANCOMYCIN 1250MG in DEXTROSE 5% WATER 250ML IV SCH (05:57)
[2018-08-27] MEDS: DILTIAZEM HCL 125 MG in DEXT 5% WATER 100 ML IV PRN (06:37)
[2018-08-27 07:15] LABS: PLATELET ESTIMATE SLIGHTLY DECREASED
[2018-08-27] MEDS: LOSARTAN POTASSIUM 25 MG TABLET PO SCH (09:21)
[2018-08-27] MEDS: LANSOPRAZOLE 30MG DR CAPSULE GT SCH (09:25)
[2018-08-27] MEDS ORDERED: SODIUM CHLORIDE 0.9% 250 ML IV NR (16:54)
[2018-08-27] MEDS ORDERED: LEVOFLOXACIN 500MG PREMIX 100 ML IV SCH (17:00)
[2018-08-28] VITALS (90 sets, daily range): BP systolic 76–199; BP diastolic 20–129
[2018-08-28] MEDS ORDERED: NOREPINEPHRINE 4 MG in DEXT 5% WATER 246 ML IV SCH ×2
[2018-08-28 00:06] LABS: BG BASE EXCESS 4.8 mmol/L (-2.0-2.0); BG CARBOXYHEMOGLOBIN 0.3 % (0.5-1.5); BG DEOXYHEMOGLOBIN 0.7 % (0.0-5.0); BG FRACTION INSPIRED OXYGEN 100; BG HCO3 ACT 31.2 mmol/L (22.0-26.0); BG METHEMOGLOBIN 0.3 % (0.0-1.5); BG OXYGEN SATURATION 99.3 % (92.0-98.5); BG OXYHEMOGLOBIN 98.7 % (94.0-97.0); BG PCO2 54.9 mmHg (35.0-45.0); BG PH 7.372 (7.350-7.450); BG PO2 271.6 mmHg (75.0-100.0); BG SAMPLE SITE LEFT RADIAL; BG TOTAL HEMOGLOBIN 11.1 g/dL (12.0-18.0); BG VENT MODE MASK - NRB
[2018-08-28] MEDS: IPRATROPIUM BROMIDE (0.02%) 0.5MG/2.5ML NEB HHN SCH ×3 (00:12→20:37)
[2018-08-28] MEDS: PIPERACILLIN/TAZ 3.375G PREMIX 50 ML IV SCH ×3 (00:14→12:17)
[2018-08-28] MEDS: NOREPINEPHRINE 16 MG in DEXT 5% WATER 234 ML IV PRN (00:14)
[2018-08-28] MEDS: VANCOMYCIN 1250MG in DEXTROSE 5% WATER 250ML IV SCH (00:26)
[2018-08-28] MEDS: FUROSEMIDE 40MG/4ML VIAL IVP SCH (00:52)
[2018-08-28 04:59] LABS: HEMATOCRIT. 33.6 % (42.0-52.0); HEMOGLOBIN. 10.6 g/dL (14.0-18.0); MEAN CORPUSCULAR HEMOGLOBIN 27.6 pg (28.0-32.0); MEAN CORPUSCULAR VOLUME 87.3 fL (80.0-94.0); MEAN PLATELET VOLUME 9.5 fl (7.4-10.4); PLATELET 138 x1000/uL (130-400); RED BLOOD CELL COUNT 3.85 mill/uL (4.7-6.1); RED CELL DISTRIBUTION WIDTH 14.1 % (11.6-14.6)
[2018-08-28 05:10] LABS: CHLORIDE 99 mEq/L (98-107)
[2018-08-28 08:34] LABS: BG BASE EXCESS 7.2 mmol/L (-2.0-2.0); BG CARBOXYHEMOGLOBIN 0.2 % (0.5-1.5); BG DEOXYHEMOGLOBIN 0.7 % (0.0-5.0); BG FRACTION INSPIRED OXYGEN 100; BG METHEMOGLOBIN 0.3 % (0.0-1.5); BG OXYGEN SATURATION 99.3 % (92.0-98.5); BG OXYHEMOGLOBIN 98.8 % (94.0-97.0); BG PCO2 52.7 mmHg (35.0-45.0); BG PH 7.415 (7.350-7.450); BG SAMPLE SITE RIGHT RADIAL; BG TOTAL HEMOGLOBIN 11.3 g/dL (12.0-18.0); BG VENT MODE VAPOTHERM
[2018-08-28] MEDS: LANSOPRAZOLE 30MG DR CAPSULE GT SCH (09:30)
[2018-08-28 15:00] LABS: PLATELET ESTIMATE NORMAL
[2018-08-28] MEDS: MEROPENEM 1,000 MG in SODIUM CHLORIDE 0.9% 100 ML IV SCH (16:57)
[2018-08-28] MEDS ORDERED: LEVOFLOXACIN 250MG PREMIX 50 ML IV SCH (17:00)
[2018-08-28] MEDS ORDERED: VANCOMYCIN 1 G PREMIX 200 ML IV SCH (18:00)
[2018-08-28] MEDS: ESMOLOL 2500MG PREMIX 250 ML IV SCH (18:03)
[2018-08-29] VITALS (100 sets, daily range): BP systolic 68–167; BP diastolic 31–113
[2018-08-29] MEDS: IPRATROPIUM BROMIDE (0.02%) 0.5MG/2.5ML NEB HHN SCH ×6 (00:01→20:39)
[2018-08-29] MEDS: FUROSEMIDE 40MG/4ML VIAL IVP SCH (00:45)
[2018-08-29] MEDS: MEROPENEM 1,000 MG in SODIUM CHLORIDE 0.9% 100 ML IV SCH (05:27)
[2018-08-29 06:28] LABS: HEMATOCRIT. 29.5 % (42.0-52.0); HEMOGLOBIN. 9.4 g/dL (14.0-18.0); MEAN CORPUSCULAR VOLUME 87.6 fL (80.0-94.0); MEAN PLATELET VOLUME 9.3 fl (7.4-10.4); PLATELET 110 x1000/uL (130-400); RED BLOOD CELL COUNT 3.36 mill/uL (4.7-6.1); RED CELL DISTRIBUTION WIDTH 14.3 % (11.6-14.6)
[2018-08-29 06:35] LABS: CHLORIDE 104 mEq/L (98-107)
[2018-08-29] MEDS: ESMOLOL 2500MG PREMIX 250 ML IV SCH ×3 (07:39→19:47)
[2018-08-29 08:10] LABS: BG BASE EXCESS 9.7 mmol/L (-2.0-2.0); BG CARBOXYHEMOGLOBIN 0.3 % (0.5-1.5); BG DEOXYHEMOGLOBIN 7.4 % (0.0-5.0); BG FRACTION INSPIRED OXYGEN 40; BG HCO3 ACT 35.1 mmol/L (22.0-26.0); BG METHEMOGLOBIN 0.1 % (0.0-1.5); BG OXYGEN SATURATION 92.6 % (92.0-98.5); BG OXYHEMOGLOBIN 92.2 % (94.0-97.0); BG PCO2 52.2 mmHg (35.0-45.0); BG PH 7.446 (7.350-7.450); BG PO2 60.3 mmHg (75.0-100.0); BG SAMPLE SITE RIGHT BRACHIAL; BG TOTAL HEMOGLOBIN 10.5 g/dL (12.0-18.0); BG VENT MODE VAPOTHERM
[2018-08-29 08:33] LABS: PLATELET ESTIMATE SLIGHTLY DECREASED
[2018-08-29] MEDS: NOREPINEPHRINE 16 MG in DEXT 5% WATER 234 ML IV PRN (09:44)
[2018-08-29] MEDS: LANSOPRAZOLE 30MG DR CAPSULE GT SCH (09:44)
[2018-08-29] MEDS ORDERED: POTASSIUM CHLORIDE 20MEQ/PACKET PO NR (10:15)
[2018-08-29] MEDS ORDERED: IOHEXOL-350 100 ML BOTTLE ONE (11:44)
[2018-08-29] MEDS: CEFEPIME 2,000 MG in DEXT 5% WATER 100 ML IV SCH (15:16)
[2018-08-29] MEDS ORDERED: TEMAZEPAM 15MG CAPSULE PO PRN (17:15)
[2018-08-30] VITALS (95 sets, daily range): BP systolic 68–162; BP diastolic 31–87
[2018-08-30] MEDS: IPRATROPIUM BROMIDE (0.02%) 0.5MG/2.5ML NEB HHN SCH ×6 (00:41→21:07)
[2018-08-30] MEDS: ESMOLOL 2500MG PREMIX 250 ML IV SCH ×5 (00:55→16:57)
[2018-08-30] MEDS: CEFEPIME 2,000 MG in DEXT 5% WATER 100 ML IV SCH ×2 (05:22→17:41)
[2018-08-30 05:48] LABS: HEMATOCRIT. 33.7 % (42.0-52.0); HEMOGLOBIN. 10.5 g/dL (14.0-18.0); MEAN CORPUSCULAR HEMOGLOBIN 27.7 pg (28.0-32.0); MEAN PLATELET VOLUME 9.2 fl (7.4-10.4); PLATELET 122 x1000/uL (130-400); RED BLOOD CELL COUNT 3.79 mill/uL (4.7-6.1); RED CELL DISTRIBUTION WIDTH 14.5 % (11.6-14.6)
[2018-08-30 05:56] LABS: CHLORIDE 102 mEq/L (98-107)
[2018-08-30 07:42] LABS: BG BASE EXCESS 5.7 mmol/L (-2.0-2.0); BG CARBOXYHEMOGLOBIN 0.1 % (0.5-1.5); BG DEOXYHEMOGLOBIN 2.6 % (0.0-5.0); BG FRACTION INSPIRED OXYGEN 50; BG HCO3 ACT 32.8 mmol/L (22.0-26.0); BG METHEMOGLOBIN 0.3 % (0.0-1.5); BG OXYGEN SATURATION 97.4 % (92.0-98.5); BG PCO2 61.7 mmHg (35.0-45.0); BG PH 7.344 (7.350-7.450); BG PO2 102.3 mmHg (75.0-100.0); BG SAMPLE SITE RIGHT RADIAL; BG TOTAL HEMOGLOBIN 10.9 g/dL (12.0-18.0); BG VENT MODE VAPOTHERM
[2018-08-30 08:23] LABS: PLATELET ESTIMATE SLIGHTLY DECREASED
[2018-08-30] MEDS ORDERED: DILTIAZEM HCL 125 MG in DEXT 5% WATER 100 ML IV PRN (08:45)
[2018-08-30] MEDS ORDERED: ENOXAPARIN 40MG/0.4ML SYR SUBCUT SCH ×2 (09:00→17:00)
[2018-08-30] MEDS: PHENYLEPHRINE 20 MG in DEXT 5% WATER 248 ML IV PRN ×3 (09:21→19:32)
[2018-08-30] MEDS: LANSOPRAZOLE 30MG DR CAPSULE GT SCH (09:30)
[2018-08-30] MEDS: AMIODARONE HCL 900 MG in DEXT 5% WATER 482 ML IV SCH (15:47)
[2018-08-30] MEDS: ENOXAPARIN 60MG/0.6ML SYR SUBCUT SCH (21:01)
[2018-08-31] VITALS (90 sets, daily range): BP systolic 82–159; BP diastolic 37–94
[2018-08-31] MEDS: IPRATROPIUM BROMIDE (0.02%) 0.5MG/2.5ML NEB HHN SCH ×5 (00:06→20:01)
[2018-08-31] MEDS: PHENYLEPHRINE 20 MG in DEXT 5% WATER 248 ML IV PRN (04:06)
[2018-08-31] MEDS: CEFEPIME 2,000 MG in DEXT 5% WATER 100 ML IV SCH ×2 (05:55→18:20)
[2018-08-31] MEDS: ESMOLOL 2500MG PREMIX 250 ML IV SCH ×2 (05:55→17:49)
[2018-08-31 06:17] LABS: HEMATOCRIT. 32.7 % (42.0-52.0); HEMOGLOBIN. 10.5 g/dL (14.0-18.0); MEAN CORPUSCULAR HEMOGLOBIN 28.1 pg (28.0-32.0); MEAN CORPUSCULAR VOLUME 87.4 fL (80.0-94.0); MEAN PLATELET VOLUME 8.6 fl (7.4-10.4); PLATELET 127 x1000/uL (130-400); RED BLOOD CELL COUNT 3.74 mill/uL (4.7-6.1); RED CELL DISTRIBUTION WIDTH 14.5 % (11.6-14.6)
[2018-08-31 06:21] LABS: CHLORIDE 102 mEq/L (98-107)
[2018-08-31] MEDS: IPRATROPIUM/ALBUTEROL 0.5-3(2.5)MG/3ML NEB HHN PRN ×2 (07:57→23:38)
[2018-08-31] MEDS: LANSOPRAZOLE 30MG DR CAPSULE GT SCH (08:02)
[2018-08-31] MEDS: ENOXAPARIN 60MG/0.6ML SYR SUBCUT SCH ×2 (08:02→20:53)
[2018-08-31 08:10] LABS: BG BASE EXCESS 4.8 mmol/L (-2.0-2.0); BG CARBOXYHEMOGLOBIN 0.3 % (0.5-1.5); BG DEOXYHEMOGLOBIN 2.7 % (0.0-5.0); BG FRACTION INSPIRED OXYGEN 50; BG HCO3 ACT 28.4 mmol/L (22.0-26.0); BG OXYGEN SATURATION 97.3 % (92.0-98.5); BG PCO2 37.8 mmHg (35.0-45.0); BG PH 7.493 (7.350-7.450); BG PO2 90.3 mmHg (75.0-100.0); BG SAMPLE SITE RIGHT BRACHIAL; BG TOTAL HEMOGLOBIN 10.7 g/dL (12.0-18.0); BG VENT MODE VAPOTHERM
[2018-08-31 10:05] LABS: PLATELET ESTIMATE SLIGHTLY DECREASED
[2018-08-31] MEDS: AMIODARONE HCL 900 MG in DEXT 5% WATER 482 ML IV SCH (12:12)
[2018-09-01] VITALS (82 sets, daily range): BP systolic 88–160; BP diastolic 45–103
[2018-09-01] MEDS: IPRATROPIUM BROMIDE (0.02%) 0.5MG/2.5ML NEB HHN SCH ×3 (04:14→19:52)
[2018-09-01] MEDS: CEFEPIME 2,000 MG in DEXT 5% WATER 100 ML IV SCH ×2 (05:16→17:57)
[2018-09-01] MEDS: ESMOLOL 2500MG PREMIX 250 ML IV SCH ×2 (05:32→17:56)
[2018-09-01 06:44] LABS: HEMATOCRIT. 32.3 % (42.0-52.0); HEMOGLOBIN. 10.3 g/dL (14.0-18.0); MEAN CORPUSCULAR HEMOGLOBIN 27.8 pg (28.0-32.0); MEAN CORPUSCULAR VOLUME 87.5 fL (80.0-94.0); MEAN PLATELET VOLUME 8.8 fl (7.4-10.4); PLATELET 121 x1000/uL (130-400); RED BLOOD CELL COUNT 3.69 mill/uL (4.7-6.1); RED CELL DISTRIBUTION WIDTH 14.4 % (11.6-14.6)
[2018-09-01 06:49] LABS: CHLORIDE 103 mEq/L (98-107)
[2018-09-01 07:56] LABS: BG BASE EXCESS 6.2 mmol/L (-2.0-2.0); BG CARBOXYHEMOGLOBIN 0.3 % (0.5-1.5); BG DEOXYHEMOGLOBIN 4.5 % (0.0-5.0); BG HCO3 ACT 30.6 mmol/L (22.0-26.0); BG METHEMOGLOBIN 0.3 % (0.0-1.5); BG OXYGEN SATURATION 95.5 % (92.0-98.5); BG OXYHEMOGLOBIN 94.9 % (94.0-97.0); BG PCO2 43.4 mmHg (35.0-45.0); BG PH 7.466 (7.350-7.450); BG PO2 74.2 mmHg (75.0-100.0); BG SAMPLE SITE RIGHT RADIAL; BG TOTAL HEMOGLOBIN 10.2 g/dL (12.0-18.0); BG VENT MODE VAPOTHERM
[2018-09-01] MEDS: LANSOPRAZOLE 30MG DR CAPSULE GT SCH (08:19)
[2018-09-01] MEDS: ENOXAPARIN 60MG/0.6ML SYR SUBCUT SCH ×2 (09:00→21:00)
[2018-09-01] MEDS: IPRATROPIUM/ALBUTEROL 0.5-3(2.5)MG/3ML NEB HHN PRN ×2 (12:09→16:27)
[2018-09-01] MEDS: AMIODARONE HCL 900 MG in DEXT 5% WATER 482 ML IV SCH (17:00)
[2018-09-01 22:42] LABS: PLATELET ESTIMATE SLIGHTLY DECREASED
[2018-09-02] VITALS (65 sets, daily range): BP systolic 15–136; BP diastolic 29–72
[2018-09-02] MEDS: IPRATROPIUM/ALBUTEROL 0.5-3(2.5)MG/3ML NEB HHN PRN (00:11)
[2018-09-02] MEDS: IPRATROPIUM BROMIDE (0.02%) 0.5MG/2.5ML NEB HHN SCH ×6 (00:12→20:29)
[2018-09-02 05:34] LABS: HEMATOCRIT 27.9 % (42.0-52.0); HEMOGLOBIN 9.2 g/dL (14.0-18.0); MEAN CORPUSCULAR HEMOGLOBIN 28.4 pg (28.0-32.0); MEAN CORPUSCULAR VOLUME 86.4 fL (80.0-94.0); PLATELET 125 x1000/uL (130-400); RED BLOOD CELL COUNT 3.23 mill/uL (4.7-6.1); RED CELL DISTRIBUTION WIDTH 13.9 % (11.6-14.6)
[2018-09-02 05:52] LABS: CHLORIDE 103 mEq/L (98-107)
[2018-09-02] MEDS: CEFEPIME 2,000 MG in DEXT 5% WATER 100 ML IV SCH ×2 (05:56→17:51)
[2018-09-02] MEDS: ESMOLOL 2500MG PREMIX 250 ML IV SCH ×2 (08:39→20:57)
[2018-09-02] MEDS: LANSOPRAZOLE 30MG DR CAPSULE GT SCH (08:54)
[2018-09-02] MEDS: ENOXAPARIN 60MG/0.6ML SYR SUBCUT SCH ×2 (10:43→20:41)
[2018-09-02] MEDS: AMIODARONE HCL 900 MG in DEXT 5% WATER 482 ML IV SCH (17:51)
[2018-09-03] VITALS (95 sets, daily range): BP systolic 91–143; BP diastolic 37–87
[2018-09-03] MEDS: IPRATROPIUM BROMIDE (0.02%) 0.5MG/2.5ML NEB HHN SCH ×6 (00:31→20:17)
[2018-09-03 05:53] LABS: EOSINOPHILS % 3.7 % (0.0-5.0); HEMATOCRIT. 29.1 % (42.0-52.0); HEMOGLOBIN. 9.4 g/dL (14.0-18.0); LYMPHOCYTES % 8.1 % (20.0-50.0); MEAN CORPUSCULAR HEMOGLOBIN 28.1 pg (28.0-32.0); MEAN PLATELET VOLUME 8.4 fl (7.4-10.4); MONOCYTES % 7.5 % (2.0-8.0); NEUTROPHILS % 79.7 % (40.0-76.0); PLATELET 147 x1000/uL (130-400); RED BLOOD CELL COUNT 3.34 mill/uL (4.7-6.1); RED CELL DISTRIBUTION WIDTH 14.6 % (11.6-14.6)
[2018-09-03] MEDS: NYSTATIN 100,000 UNITS/ML 5ML UDC SSW SCH ×4 (06:00→18:33)
[2018-09-03 06:01] LABS: CHLORIDE 105 mEq/L (98-107)
[2018-09-03] MEDS: CEFEPIME 2,000 MG in DEXT 5% WATER 100 ML IV SCH ×2 (06:02→18:32)
[2018-09-03 08:11] LABS: BG BASE EXCESS 0.6 mmol/L (-2.0-2.0); BG CARBOXYHEMOGLOBIN 0.6 % (0.5-1.5); BG DEOXYHEMOGLOBIN 2.7 % (0.0-5.0); BG FRACTION INSPIRED OXYGEN 50; BG HCO3 ACT 25.8 mmol/L (22.0-26.0); BG OXYGEN SATURATION 97.3 % (92.0-98.5); BG OXYHEMOGLOBIN 96.7 % (94.0-97.0); BG PH 7.386 (7.350-7.450); BG PO2 94.9 mmHg (75.0-100.0); BG SAMPLE SITE RIGHT RADIAL; BG TOTAL HEMOGLOBIN 11.2 g/dL (12.0-18.0); BG VENT MODE VAPOTHERM
[2018-09-03] MEDS: LANSOPRAZOLE 30MG DR CAPSULE GT SCH (08:44)
[2018-09-03] MEDS: ESMOLOL 2500MG PREMIX 250 ML IV SCH (08:44)
[2018-09-03] MEDS: ENOXAPARIN 60MG/0.6ML SYR SUBCUT SCH ×2 (08:44→20:19)
[2018-09-03] MEDS ORDERED: ESMOLOL 2500MG PREMIX 250 ML IV SCH (15:00)
[2018-09-03] MEDS: AMIODARONE HCL 900 MG in DEXT 5% WATER 482 ML IV SCH (23:45)
[2018-09-04] VITALS (96 sets, daily range): BP systolic 91–145; BP diastolic 52–78
[2018-09-04] MEDS: IPRATROPIUM BROMIDE (0.02%) 0.5MG/2.5ML NEB HHN SCH ×6 (00:25→20:16)
[2018-09-04] MEDS: CEFEPIME 2,000 MG in DEXT 5% WATER 100 ML IV SCH ×2 (05:32→18:52)
[2018-09-04] MEDS: NYSTATIN 100,000 UNITS/ML 5ML UDC SSW SCH ×5 (05:32→23:56)
[2018-09-04 06:26] LABS: BASOPHILS % 0.7 % (0.0-2.0); EOSINOPHILS % 4.7 % (0.0-5.0); HEMATOCRIT. 30.1 % (42.0-52.0); HEMOGLOBIN. 9.7 g/dL (14.0-18.0); MEAN CORPUSCULAR HEMOGLOBIN 28.3 pg (28.0-32.0); MEAN CORPUSCULAR VOLUME 87.4 fL (80.0-94.0); MEAN PLATELET VOLUME 8.4 fl (7.4-10.4); MONOCYTES % 7.4 % (2.0-8.0); NEUTROPHILS % 78.2 % (40.0-76.0); PLATELET 164 x1000/uL (130-400); RED BLOOD CELL COUNT 3.44 mill/uL (4.7-6.1); RED CELL DISTRIBUTION WIDTH 14.9 % (11.6-14.6)
[2018-09-04 07:09] LABS: CHLORIDE 105 mEq/L (98-107)
[2018-09-04] MEDS: LANSOPRAZOLE 30MG DR CAPSULE GT SCH (07:50)
[2018-09-04] MEDS ORDERED: PROPOFOL 200MG/20ML VIAL IV ONE (08:53)
[2018-09-04] MEDS: ENOXAPARIN 60MG/0.6ML SYR SUBCUT SCH ×2 (10:04→20:12)
[2018-09-04] MEDS: AMIODARONE HCL 200 MG TABLET PO SCH ×3 (12:46→23:56)
[2018-09-05] VITALS (60 sets, daily range): BP systolic 110–154; BP diastolic 51–78
[2018-09-05] MEDS: IPRATROPIUM BROMIDE (0.02%) 0.5MG/2.5ML NEB HHN SCH ×6 (00:40→21:58)
[2018-09-05] MEDS: NYSTATIN 100,000 UNITS/ML 5ML UDC SSW SCH ×3 (05:47→18:00)
[2018-09-05] MEDS: AMIODARONE HCL 200 MG TABLET PO SCH ×3 (05:47→17:59)
[2018-09-05] MEDS: CEFEPIME 2,000 MG in DEXT 5% WATER 100 ML IV SCH (05:48)
[2018-09-05 06:24] LABS: CHLORIDE 103 mEq/L (98-107)
[2018-09-05 06:25] LABS: BASOPHILS % 0.4 % (0.0-2.0); EOSINOPHILS % 4.7 % (0.0-5.0); HEMATOCRIT. 28.9 % (42.0-52.0); HEMOGLOBIN. 9.3 g/dL (14.0-18.0); LYMPHOCYTES % 7.8 % (20.0-50.0); MEAN CORPUSCULAR HEMOGLOBIN 28.1 pg (28.0-32.0); MEAN CORPUSCULAR VOLUME 87.3 fL (80.0-94.0); MEAN PLATELET VOLUME 8.1 fl (7.4-10.4); MONOCYTES % 9.2 % (2.0-8.0); NEUTROPHILS % 77.9 % (40.0-76.0); PLATELET 171 x1000/uL (130-400); RED BLOOD CELL COUNT 3.31 mill/uL (4.7-6.1)
[2018-09-05 08:53] LABS: BG BASE EXCESS 8.3 mmol/L (-2.0-2.0); BG CARBOXYHEMOGLOBIN 0.3 % (0.5-1.5); BG DEOXYHEMOGLOBIN 3.2 % (0.0-5.0); BG FRACTION INSPIRED OXYGEN 45; BG METHEMOGLOBIN 0.2 % (0.0-1.5); BG OXYGEN SATURATION 96.8 % (92.0-98.5); BG OXYHEMOGLOBIN 96.3 % (94.0-97.0); BG PCO2 53.2 mmHg (35.0-45.0); BG PH 7.423 (7.350-7.450); BG PO2 91.5 mmHg (75.0-100.0); BG SAMPLE SITE RIGHT RADIAL; BG TOTAL HEMOGLOBIN 10.2 g/dL (12.0-18.0); BG VENT MODE VAPOTHERM
[2018-09-05] MEDS: LANSOPRAZOLE 30MG DR CAPSULE GT SCH (08:58)
[2018-09-05] MEDS: ENOXAPARIN 60MG/0.6ML SYR SUBCUT SCH (08:58)
[2018-09-05] MEDS: IPRATROPIUM/ALBUTEROL 0.5-3(2.5)MG/3ML NEB HHN PRN (16:19)
[2018-09-05] MEDS: APIXABAN 5 MG TABLET PO SCH (17:59)
[2018-09-06] VITALS (12 sets, daily range): BP systolic 113–143; BP diastolic 52–63
[2018-09-06] MEDS: AMIODARONE HCL 200 MG TABLET PO SCH ×4 (00:29→18:06)
[2018-09-06] MEDS: NYSTATIN 100,000 UNITS/ML 5ML UDC SSW SCH ×3 (00:34→12:30)
[2018-09-06] MEDS: IPRATROPIUM BROMIDE (0.02%) 0.5MG/2.5ML NEB HHN SCH ×6 (00:44→20:57)
[2018-09-06 06:51] LABS: BASOPHILS % 0.8 % (0.0-2.0); EOSINOPHILS % 3.9 % (0.0-5.0); HEMATOCRIT. 27.8 % (42.0-52.0); HEMOGLOBIN. 8.8 g/dL (14.0-18.0); LYMPHOCYTES % 8.9 % (20.0-50.0); MEAN CORPUSCULAR HEMOGLOBIN 27.6 pg (28.0-32.0); MEAN CORPUSCULAR VOLUME 87.3 fL (80.0-94.0); MONOCYTES % 8.9 % (2.0-8.0); NEUTROPHILS % 77.5 % (40.0-76.0); PLATELET 178 x1000/uL (130-400); RED BLOOD CELL COUNT 3.19 mill/uL (4.7-6.1); RED CELL DISTRIBUTION WIDTH 14.8 % (11.6-14.6)
[2018-09-06] MEDS: LANSOPRAZOLE 30MG DR CAPSULE GT SCH (07:05)
[2018-09-06 07:07] LABS: CHLORIDE 104 mEq/L (98-107)
[2018-09-06] MEDS: APIXABAN 5 MG TABLET PO SCH (09:30)
[2018-09-06] MEDS ORDERED: NITROGLYCERIN 0.4MG TABLET SL SL PRN (12:00)
[2018-09-06] MEDS ORDERED: NITROGLYCERIN 0.4MG TABLET SL SL ONE (12:01)
[2018-09-06 12:21] LABS: BG BASE EXCESS 6.1 mmol/L (-2.0-2.0); BG DEOXYHEMOGLOBIN 6.3 % (0.0-5.0); BG FRACTION INSPIRED OXYGEN 36; BG HCO3 ACT 32.4 mmol/L (22.0-26.0); BG METHEMOGLOBIN 0.2 % (0.0-1.5); BG OXYGEN SATURATION 93.7 % (92.0-98.5); BG OXYHEMOGLOBIN 93.5 % (94.0-97.0); BG PCO2 55.6 mmHg (35.0-45.0); BG PH 7.383 (7.350-7.450); BG PO2 64.1 mmHg (75.0-100.0); BG SAMPLE SITE LEFT RADIAL; BG TOTAL HEMOGLOBIN 10.4 g/dL (12.0-18.0); BG VENT MODE NASAL CANNULA
[2018-09-06] MEDS: NITROGLYCERIN OINT 1GM/INCH UDPKT TD SCH ×2 (12:58→18:06)
[2018-09-06] MEDS: FUROSEMIDE 40MG/4ML VIAL IVP SCH (13:06)
[2018-09-06] MEDS: ASPIRIN 81MG TABLET PO SCH (13:09)
[2018-09-06] MEDS ORDERED: NITROGLYCERIN 0.1MG/HR PATCH TOP SCH (18:00)
[2018-09-06] MEDS ORDERED: FUROSEMIDE 40MG/4ML VIAL IVP NR (19:15)
[2018-09-07] VITALS (12 sets, daily range): BP systolic 108–133; BP diastolic 50–65
[2018-09-07] MEDS: AMIODARONE HCL 200 MG TABLET PO SCH ×4 (00:36→17:22)
[2018-09-07] MEDS: NITROGLYCERIN OINT 1GM/INCH UDPKT TD SCH ×4 (00:38→17:24)
[2018-09-07] MEDS: IPRATROPIUM BROMIDE (0.02%) 0.5MG/2.5ML NEB HHN SCH ×5 (00:39→21:04)
[2018-09-07] MEDS: LANSOPRAZOLE 30MG DR CAPSULE GT SCH (05:54)
[2018-09-07 07:28] LABS: CHLORIDE 95 mEq/L (98-107)
[2018-09-07 07:31] LABS: HEMATOCRIT. 29.4 % (42.0-52.0); HEMOGLOBIN. 9.3 g/dL (14.0-18.0); MEAN CORPUSCULAR HEMOGLOBIN 27.8 pg (28.0-32.0); MEAN CORPUSCULAR VOLUME 87.8 fL (80.0-94.0); MEAN PLATELET VOLUME 8.2 fl (7.4-10.4); PLATELET 192 x1000/uL (130-400); RED BLOOD CELL COUNT 3.35 mill/uL (4.7-6.1); RED CELL DISTRIBUTION WIDTH 14.9 % (11.6-14.6)
[2018-09-07] MEDS: FUROSEMIDE 40MG/4ML VIAL IVP SCH (09:19)
[2018-09-07] MEDS: ASPIRIN 81MG TABLET PO SCH (09:19)
[2018-09-07 10:25] LABS: PLATELET ESTIMATE NORMAL
[2018-09-08] VITALS (12 sets, daily range): BP systolic 101–128; BP diastolic 52–76
[2018-09-08] MEDS: AMIODARONE HCL 200 MG TABLET PO SCH ×4 (00:20→17:44)
[2018-09-08] MEDS: NITROGLYCERIN OINT 1GM/INCH UDPKT TD SCH ×4 (00:22→17:47)
[2018-09-08] MEDS: IPRATROPIUM BROMIDE (0.02%) 0.5MG/2.5ML NEB HHN SCH ×6 (00:41→21:18)
[2018-09-08 06:07] LABS: CHLORIDE 93 mEq/L (98-107)
[2018-09-08 06:30] LABS: BASOPHILS % 0.3 % (0.0-2.0); EOSINOPHILS % 3.6 % (0.0-5.0); LYMPHOCYTES % 7.1 % (20.0-50.0); MEAN CORPUSCULAR HEMOGLOBIN 29.2 pg (28.0-32.0); MEAN CORPUSCULAR VOLUME 87.8 fL (80.0-94.0); MEAN PLATELET VOLUME 8.4 fl (7.4-10.4); MONOCYTES % 8.2 % (2.0-8.0); NEUTROPHILS % 80.8 % (40.0-76.0); PLATELET 190 x1000/uL (130-400); RED BLOOD CELL COUNT 3.08 mill/uL (4.7-6.1); RED CELL DISTRIBUTION WIDTH 14.9 % (11.6-14.6)
[2018-09-08] MEDS: ASPIRIN 81MG TABLET PO SCH (08:42)
[2018-09-08] MEDS: FUROSEMIDE 40MG/4ML VIAL IVP SCH (08:42)
[2018-09-09] VITALS (12 sets, daily range): BP systolic 107–144; BP diastolic 48–70
[2018-09-09] MEDS: AMIODARONE HCL 200 MG TABLET PO SCH ×4 (00:23→17:32)
[2018-09-09] MEDS: IPRATROPIUM BROMIDE (0.02%) 0.5MG/2.5ML NEB HHN SCH ×6 (00:23→20:22)
[2018-09-09] MEDS: NITROGLYCERIN OINT 1GM/INCH UDPKT TD SCH ×4 (00:24→17:32)
[2018-09-09] MEDS: FUROSEMIDE 40MG/4ML VIAL IVP SCH (08:38)
[2018-09-09] MEDS: ASPIRIN 81MG TABLET PO SCH (08:38)
[2018-09-09] MEDS ORDERED: LACTULOSE 20G/30ML UDC PO PRN (19:30)
[2018-09-10] VITALS (10 sets, daily range): BP systolic 106–138; BP diastolic 55–76
[2018-09-10] MEDS: IPRATROPIUM BROMIDE (0.02%) 0.5MG/2.5ML NEB HHN SCH ×4 (00:22→12:43)
[2018-09-10] MEDS: AMIODARONE HCL 200 MG TABLET PO SCH ×3 (00:30→11:56)
[2018-09-10] MEDS: NITROGLYCERIN OINT 1GM/INCH UDPKT TD SCH ×3 (00:30→11:57)
[2018-09-10 05:48] LABS: BASOPHILS % 0.6 % (0.0-2.0); HEMATOCRIT. 28.5 % (42.0-52.0); HEMOGLOBIN. 9.1 g/dL (14.0-18.0); MEAN CORPUSCULAR HEMOGLOBIN 27.9 pg (28.0-32.0); MEAN PLATELET VOLUME 8.5 fl (7.4-10.4); MONOCYTES % 9.7 % (2.0-8.0); NEUTROPHILS % 77.7 % (40.0-76.0); PLATELET 214 x1000/uL (130-400); RED BLOOD CELL COUNT 3.27 mill/uL (4.7-6.1); RED CELL DISTRIBUTION WIDTH 14.9 % (11.6-14.6)
[2018-09-10 05:59] LABS: CHLORIDE 93 mEq/L (98-107)
[2018-09-10] MEDS: ASPIRIN 81MG TABLET PO SCH (09:08)
[2018-09-10] MEDS: FUROSEMIDE 40MG/4ML VIAL IVP SCH (09:08)
[2018-09-10] MEDS ORDERED: APIXABAN 5 MG TABLET PO SCH (17:00)
== END 2018-09-10 16:28 | DRG 870 ==
LOC: ER 22:34 → EDBEDREQSVC 08-08 00:16 → EDBEDREQDT 08-08 00:16 → EDBEDREQTM 08-08 00:16 → EDBEDREQ 08-08 00:16 → MICUSO 08-08 03:10 → EDBEDREQ 08-08 03:16 → EDBEDREQTM 08-08 03:16 → ENRESERV 08-08 14:56 → 5EST 08-23 10:00 → CVICU 08-24 15:45 → 3WST 09-05 17:00
PROVIDERS: ADMIT Ophthalmology; ATTEND Ophthalmology
PROC: 5A1955Z Respiratory Ventilation, Greater than 96 Consecutive Hours (ICD-10-PCS; principal; 2018-08-07)
PROC: 0BH17EZ Insertion of Endotracheal Airway into Trachea, Via Natural or Artificial Opening (ICD-10-PCS; 2018-08-07)
PROC: 02HV33Z Insertion of Infusion Device into Superior Vena Cava, Percutaneous Approach (ICD-10-PCS; 2018-08-07)
PROC: 5A09457 Assistance with Respiratory Ventilation, 24-96 Consecutive Hours, Continuous Positive Airway Pressure (ICD-10-PCS; 2018-08-20)
PROC: 5A09357 Assistance with Respiratory Ventilation, Less than 24 Consecutive Hours, Continuous Positive Airway Pressure (ICD-10-PCS; 2018-08-22)
PROC: 02HV33Z Insertion of Infusion Device into Superior Vena Cava, Percutaneous Approach (ICD-10-PCS; 2018-08-26)
PROC: B548ZZA Ultrasonography of Superior Vena Cava, Guidance (ICD-10-PCS; 2018-08-26)
PROC: 5A2204Z Restoration of Cardiac Rhythm, Single (ICD-10-PCS; 2018-09-04)
PROC: 4A00X4Z Measurement of Central Nervous Electrical Activity, External Approach (ICD-10-PCS; 2018-09-06)
DX: A41.52 Sepsis due to Pseudomonas (principal); G92 Toxic encephalopathy; J96.01 Acute respiratory failure with hypoxia; K72.00 Acute and subacute hepatic failure without coma; J18.9 Pneumonia, unspecified organism; J96.22 Acute and chronic respiratory failure with hypercapnia; R65.21 Severe sepsis with septic shock; I21.4 Non-ST elevation (NSTEMI) myocardial infarction; I50.43 Acute on chronic combined systolic (congestive) and diastolic (congestive) heart failure; N17.9 Acute kidney failure, unspecified; I13.0 Hypertensive heart and chronic kidney disease with heart failure and stage 1 through stage 4 chronic kidney disease, or unspecified chronic kidney disease; D68.9 Coagulation defect, unspecified; J44.1 Chronic obstructive pulmonary disease with (acute) exacerbation; J44.0 Chronic obstructive pulmonary disease with (acute) lower respiratory infection; D68.59 Other primary thrombophilia; R18.8 Other ascites; N13.6 Pyonephrosis; I48.4 Atypical atrial flutter; E87.4 Mixed disorder of acid-base balance; E87.0 Hyperosmolality and hypernatremia; E46 Unspecified protein-calorie malnutrition; S37.30XA Unspecified injury of urethra, initial encounter; I48.91 Unspecified atrial fibrillation; E11.22 Type 2 diabetes mellitus with diabetic chronic kidney disease; B37.9 Candidiasis, unspecified; D64.9 Anemia, unspecified; N18.3 Chronic kidney disease, stage 3 (moderate); N28.1 Cyst of kidney, acquired; K82.8 Other specified diseases of gallbladder; I27.20 Pulmonary hypertension, unspecified; I49.5 Sick sinus syndrome; I25.10 Atherosclerotic heart disease of native coronary artery without angina pectoris; D69.6 Thrombocytopenia, unspecified; E83.39 Other disorders of phosphorus metabolism; E87.5 Hyperkalemia; G90.4 Autonomic dysreflexia; I07.1 Rheumatic tricuspid insufficiency; R74.0 Nonspecific elevation of levels of transaminase and lactic acid dehydrogenase [LDH]; Z78.1 Physical restraint status; Z68.21 Body mass index [BMI] 21.0-21.9, adult; X58.XXXA Exposure to other specified factors, initial encounter; Y93.89 Activity, other specified; Y92.238 Other place in hospital as the place of occurrence of the external cause; Y99.8 Other external cause status
CPT/HCPCS: 31500; 36415; 36556; 36569; 36600; 70551; 71045; 71275; 75572; 76700; 76857; 76937; 78580; 80048; 80061; 80076; 80202; 80305; 80307; 80329; 82140; 82375; 82550; 82570; 82607; 82746; 82805; 82962; 83036; 83605; 83735; 83880; 84100; 84145; 84153; 84300; 84439; 84443; 84478; 84481; 84484; 85014; 85018; 85027; 85379; 86038; 86160; 86705; 86709; 86803; 87015; 87045; 87070; 87077; 87186; 87340; 87389; 87427; 87449; 87493; 87804; 89055; 92610; 93005; 93306; 93970; 94002; 94003; 94640; 94660; 96365; 96375; 97163; 97164; 97166; 97530; 99291; A6261; C1725; C9113; J0282; J0360; J0692; J1160; J1650; J1815; J1940; J1956; J2060; J2185; J2310; J2370; J2405; J2543; J2704; J2920; J2930; J3010; J3370; J3490; J7030; J7040; J7050; J7060; J7620; Q9967; A4315; G0103